=== PATIENT | female | born 1935 | race Caucasian/White ===

== ENCOUNTER 2016-11-13 14:51 | Inpatient (IN) | payer MEDICARE ==
--- NOTE | 2016-11-13 15:41 | ED ---
Psych HPI - General Chief Complaint: Psychiatric Symptoms Stated Complaint: Mental Health Time Seen by Provider: 11/13/16 15:00 Source: patient, police, RN notes reviewed Mode of arrival: ambulatory - History of Present Illness Initial Comments: This is a 81-year-old female history of schizophrenia who is brought in a pickup order because of not caring for her son. She lives by herself but apparently is not been since July of this past year there is a report of a history of bed bugs in her house she actually was given new furniture and clothing there is none reported today but is precaution she is also to be checked for this. She has been given soap and howls and other things by [facility] but she has not used them but they have disappeared. Patient is a poor historian. Is no reports of any trauma fevers chills nausea vomiting sweats or other symptoms MD Complaint: other - Related Data Home Medications Medication Instructions Recorded Confirmed No Known Home Medications [No 11/13/16 11/13/16 Known Home Medications] Allergies Allergy/AdvReac Type Severity Reaction Status Date / Time No Known Allergies Allergy Verified 11/13/16 15:45 Review of Systems ROS Statement: Those systems with pertinent positive or pertinent negative responses have been documented in the HPI. ROS Other: All systems not noted in ROS Statement are negative. Limitations: ROS unobtainable due to patients medical condition Past Medical History Past Medical History: Unable to Obtain Additional Past Medical History / Comment(s): pt unsure of hx History of Any Multi-Drug Resistant Organisms: None Reported Past Surgical History: Unable to Obtain Past Psychological History: No Psychological Hx Reported Smoking Status: Never smoker Past Alcohol Use History: None Reported Past Drug Use History: None Reported General Exam - General Exam Comments Initial Comments: Is a well-developed well-nourished awake Limitations: no limitations General appearance: alert, in no apparent distress Head exam: Present: atraumatic, normocephalic, normal inspection Eye exam: Present: normal appearance, PERRL, EOMI. Absent: scleral icterus, conjunctival injection, periorbital swelling ENT exam: Present: normal exam, mucous membranes moist Neck exam: Present: normal inspection. Absent: tenderness, meningismus, lymphadenopathy Respiratory exam: Present: normal lung sounds bilaterally. Absent: respiratory distress, wheezes, rales, rhonchi, stridor Cardiovascular Exam: Present: regular rate, normal rhythm, normal heart sounds. Absent: systolic murmur, diastolic murmur, rubs, gallop, clicks GI/Abdominal exam: Present: soft, normal bowel sounds. Absent: distended, tenderness, guarding, rebound, rigid Rectal exam: Present: deferred Extremities exam: Present: full ROM, normal capillary refill, other (Patient does have evidence of stasis dermatitis to her lower extremities bilaterally. There is a small abrasion to the left lower extremity to demonstrates no active bleeding.). Absent: tenderness, pedal edema, joint swelling, calf tenderness Back exam: Present: full ROM. Absent: tenderness Neurological exam: Present: alert, altered, CN II-XII intact Psychiatric exam: Present: normal mood, flat affect Skin exam: Present: warm, dry, normal color, other (Complete examination of the integument reveals several excoriated lesions on the upper shoulders and chest no evidence including inspection of the hair of any parasitic involvement at this time.). Absent: rash Course Vital Signs 11/13/16 15:08 Temperature 97.9 F Pulse Rate 112 H Respiratory 18 Rate Blood Pressure 142/80 O2 Sat by Pulse 98 Oximetry Medical Decision Making - Medical Decision Making Patient was evaluated by the psychiatric service. I did fill out a clinical certification. Patient will be admitted with diagnosis of psychosis NOS as well as her schizophrenia and UTI. She'll be placed on Levaquin 500 mg daily for 9 more days. - Lab Data Result diagrams: 11/13/16 15:30 Lab Results 11/13/16 11/13/16 11/13/16 Range/Units 15:30 15:30 15:30 WBC 9.1 (3.8-10.6) k/uL RBC 4.45 (3.80-5.40) m/uL Hgb 12.5 (11.4-16.0) gm/dL Hct 38.9 (34.0-46.0) % MCV 87.2 (80.0-100.0) fL MCH 28.1 (25.0-35.0) pg MCHC 32.2 (31.0-37.0) g/dL RDW 14.8 (11.5-15.5) % Plt Count 395 (150-450) k/uL Neutrophils % 73 % Lymphocytes % 14 % Monocytes % 7 % Eosinophils % 2 % Basophils % 1 % Neutrophils # 6.6 (1.3-7.7) k/uL Lymphocytes # 1.3 (1.0-4.8) k/uL Monocytes # 0.6 (0-1.0) k/uL Eosinophils # 0.2 (0-0.7) k/uL Basophils # 0.1 (0-0.2) k/uL Hypochromasia Slight Magnesium 2.1 (1.6-2.3) mg/dL Ammonia (<30) umol/L Total Creatine Kinase 62 (30-135) U/L CK-MB (CK-2) 0.4 (0.0-2.4) ng/mL CK-MB (CK-2) Rel Index 0.6 Urine Color Urine Appearance (Clear) Urine pH (5.0-8.0) Ur Specific [place] (1.001-1.035) Urine Protein (Negative) Urine Glucose (UA) (Negative) Urine Ketones (Negative) Urine Blood (Negative) Urine Nitrate (Negative) Urine Bilirubin (Negative) Urine Urobilinogen (<2.0) mg/dL Ur Leukocyte Esterase (Negative) Urine RBC (0-5) /hpf Urine WBC (0-5) /hpf Urine WBC Clumps (None) /hpf Ur Squamous Epith Cells (0-4) /hpf Amorphous Sediment (None) /hpf Urine Bacteria (None) /hpf Hyaline Casts (0-2) /lpf Urine Mucus (None) /hpf Urine Opiates Screen (NotDetected) Ur Oxycodone Screen (NotDetected) Urine Methadone Screen (NotDetected) Ur Propoxyphene Screen (NotDetected) Ur Barbiturates Screen (NotDetected) U Tricyclic Antidepress (NotDetected) Ur Phencyclidine Scrn (NotDetected) Ur Amphetamines Screen (NotDetected) U Methamphetamines Scrn (NotDetected) U Benzodiazepines Scrn (NotDetected) Urine Cocaine Screen (NotDetected) U Marijuana (THC) Screen (NotDetected) 11/13/16 11/13/16 Range/Units 15:46 16:10 WBC (3.8-10.6) k/uL RBC (3.80-5.40) m/uL Hgb (11.4-16.0) gm/dL Hct (34.0-46.0) % MCV (80.0-100.0) fL MCH (25.0-35.0) pg MCHC (31.0-37.0) g/dL RDW (11.5-15.5) % Plt Count (150-450) k/uL Neutrophils % % Lymphocytes % % Monocytes % % Eosinophils % % Basophils % % Neutrophils # (1.3-7.7) k/uL Lymphocytes # (1.0-4.8) k/uL Monocytes # (0-1.0) k/uL Eosinophils # (0-0.7) k/uL Basophils # (0-0.2) k/uL Hypochromasia Magnesium (1.6-2.3) mg/dL Ammonia <9 (<30) umol/L Total Creatine Kinase (30-135) U/L CK-MB (CK-2) (0.0-2.4) ng/mL CK-MB (CK-2) Rel Index Urine Color Yellow Urine Appearance Cloudy H (Clear) Urine pH 5.5 (5.0-8.0) Ur Specific [place] 1.014 (1.001-1.035) Urine Protein Trace H (Negative) Urine Glucose (UA) Negative (Negative) Urine Ketones Negative (Negative) Urine Blood Small H (Negative) Urine Nitrate Positive H (Negative) Urine Bilirubin Negative (Negative) Urine Urobilinogen <2.0 (<2.0) mg/dL Ur Leukocyte Esterase Large H (Negative) Urine RBC 17 H (0-5) /hpf Urine WBC >182 H (0-5) /hpf Urine WBC Clumps Many H (None) /hpf Ur Squamous Epith Cells 9 H (0-4) /hpf Amorphous Sediment Occasional H (None) /hpf Urine Bacteria Many H (None) /hpf Hyaline Casts 5 H (0-2) /lpf Urine Mucus Occasional H (None) /hpf Urine Opiates Screen Not Detected (NotDetected) Ur Oxycodone Screen Not Detected (NotDetected) Urine Methadone Screen Not Detected (NotDetected) Ur Propoxyphene Screen Not Detected (NotDetected) Ur Barbiturates Screen Not Detected (NotDetected) U Tricyclic Antidepress Not Detected (NotDetected) Ur Phencyclidine Scrn Not Detected (NotDetected) Ur Amphetamines Screen Not Detected (NotDetected) U Methamphetamines Scrn Not Detected (NotDetected) U Benzodiazepines Scrn Not Detected (NotDetected) Urine Cocaine Screen Not Detected (NotDetected) U Marijuana (THC) Screen Not Detected (NotDetected) - EKG Data -: EKG Interpreted by Me EKG shows normal: sinus rhythm (Normal sinus rhythm rate of 86. Interval 138 QRS duration 70 QT/QTC of 380/[address]-T wave changes.) - Radiology Data Radiology results: report reviewed (I did review the imaging and reports no acute findings.), image reviewed Disposition Clinical Impression: Acute psychosis, Schizophrenia, Urinary tract infection Disposition: TRANSFER TO PSYCH HOSP/UNIT Condition: Stable
[2016-11-13 15:52] LABS: Basophils # (A) 0.1 k/uL (0-0.2); Basophils % (A) 1 %; CH 27.2; CHCM 31.3; Eosinophils # (A) 0.2 k/uL (0-0.7); Eosinophils % (A) 2 %; HCT 38.9 % (34.0-46.0); HDW 2.65; HGB 12.5 gm/dL (11.4-16.0); Hypochromasia Slight; Luc # (Auto) 0.26; Luc % (Auto) 3; Lymphocytes # (A) 1.3 k/uL (1.0-4.8); Lymphocytes % (A) 14 %; MCH 28.1 pg (25.0-35.0); MCHC 32.2 g/dL (31.0-37.0); MCV 87.2 fL (80.0-100.0); Monocytes # (A) 0.6 k/uL (0-1.0); Monocytes % (A) 7 %; Neutrophils # (A) 6.6 k/uL (1.3-7.7); Neutrophils % (A) 73 %; RBC 4.45 m/uL (3.80-5.40); RDW 14.8 % (11.5-15.5); WBC 9.1 k/uL (3.8-10.6); WBC (Perox) 9.32
[2016-11-13 16:39] LABS: Creatine Kinase MB 0.4 ng/mL (0.0-2.4)
--- NOTE | 2016-11-13 16:49 | CT ---
EXAMINATION TYPE: CT brain wo con DATE OF EXAM: 11/13/2016 4:44 PM COMPARISON: 03/30/2013 HISTORY: Patient poor historian CT DLP: [address] of the brain was performed. The ventricles, basal cisterns and sulci overlying the cerebral convexities demonstrate moderate enla rgement. There is no evidence for intracranial hemorrhage or sulcal effacement. There is decreased attenuation about the periventricular white matter and deep white matter of both c erebral hemispheres, compatible with chronic small vessel ischemia. Differential diagnosis does inclu de demyelination. No mass effects are seen.No midline shift. Osseous calvarium is intact. If symptoms persist consider MRI. IMPRESSION: 1. Age related atrophic and chronic small vessel ischemic change without acute intracranial process s een at this time.
[2016-11-13 16:55] LABS: Amorphous Sediment,Urine Occasional /hpf; Appearance,Urine Cloudy (Clear); Bacteria,Urine Many /hpf; Bilirubin,Urine Negative (Negative); Glucose,Urine (UA) Negative (Negative); Ketones,Urine Negative (Negative); Leukocyte Esterase,Urine Large (Negative); Mucus,Urine Occasional /hpf; Nitrite,Urine Positive (Negative); PH, Urine 5.5 (5.0-8.0); Particle Count 83813; Protein,Urine Trace (Negative); RBC,Urine 17 /hpf (0-5); Specific Gravity,Urine 1.014 (1.001-1.035); Squamous Epithelial Cell,Urine 9 /hpf (0-4); UA Billing (MACRO vs. MICRO) MICRO; Urobilinogen,Urine <2.0 mg/dL (<2.0); WBC,Urine >182 /hpf (0-5)
--- NOTE | 2016-11-13 16:55 | XR ---
EXAMINATION TYPE: XR chest 2V DATE OF EXAM: 11/13/2016 4:44 PM COMPARISON: 03/30/2013 HISTORY: Shortness of breath TECHNIQUE: Frontal and lateral views of the chest are obtained. FINDINGS: Scattered senescent parenchymal changes noted. Hyperinflation compatible with COPD. No evidence for infiltrate. No evidence for atelectasis. Heart size is enlarged. Mediastinal structures are stable and grossly unremarkable. Small fixed hiatal hernia. No evidence for hilar prominence. Degenerative changes dorsal spine. IMPRESSION: 1. No evidence for acute pulmonary disease.
[2016-11-13] MEDS ORDERED: LEVOFLOXACIN 500 MG TAB PO STA (17:15)
[2016-11-13] MEDS ORDERED: ACETAMINOPHEN TAB 325 MG TAB PO PRN (21:44)
[2016-11-13] MEDS ORDERED: MAGNESIUM HYDROXIDE 2,400 MG/10 ML CUP PO PRN (21:44)
[2016-11-13] MEDS ORDERED: MAG HYDROX/AL HYDROX/SIMETH 30 ML CUP PO PRN (21:44)
[2016-11-13] MEDS ORDERED: LORazepam 2 MG/ML SYRINGE IM PRN (21:50)
[2016-11-13] MEDS ORDERED: LORazepam 1 MG TAB PO PRN (21:50)
[2016-11-14 08:19] LABS: Basophils % (A) 1 %; CH 27.3; CHCM 31.3; Eosinophils # (A) 0.2 k/uL (0-0.7); Eosinophils % (A) 3 %; HCT 35.1 % (34.0-46.0); HDW 2.61; HGB 11.2 gm/dL (11.4-16.0); Hypochromasia Slight; Luc # (Auto) 0.23; Luc % (Auto) 3; Lymphocytes # (A) 1.2 k/uL (1.0-4.8); Lymphocytes % (A) 18 %; MCH 27.9 pg (25.0-35.0); MCV 87.4 fL (80.0-100.0); Mean Platelet Volume 7.8; Monocytes # (A) 0.5 k/uL (0-1.0); Monocytes % (A) 7 %; Neutrophils # (A) 4.7 k/uL (1.3-7.7); Neutrophils % (A) 69 %; RBC 4.02 m/uL (3.80-5.40); RDW 14.9 % (11.5-15.5); WBC 6.8 k/uL (3.8-10.6); WBC (Perox) 7.37
--- NOTE | 2016-11-14 11:42 | P.HP ---
Psychiatric H&P - . H&P Date: 11/14/16 History & Physical: IDENTIFYING DATA: Ms. Tello is 81-year-old female who presented to the psychiatric unit involuntarily with an Order for Examination/Transport. HISTORY OF PRESENT ILLNESS: A credit collector from [employer] completed the Petition for Mental Health Treatment. The Petition read "Nicol has not bathed since 07-24 Nicol has red, swollen legs with white flaking skin. Nicol had bed bugs crawling on her. She refused to go to the doctor on 2016. Nicol does not have adequate food in her home and refuses Meals on Wheels. ... Nicol has sores on her feet. She has had treatment for bedbugs, every 2 weeks for months." Mr. Luke was unable to provide an coherent history. She stated that the police brought her here. They "came to where I was at and brought me here. ... I told him I was getting to leave." She doesn't know where she was at when the police picked her up. She talked about having to leave her apartment and "staying somewherer" because of bedbugs. "They told us to leave because we had bugs. Some went back to their relatives." Her son is only relative. She believes that he lives "[place]". According to the information on the Petition her son lives in [facility]. The EPS nurse spoke with her son yesterday. He stated that he visited his mother 2 weeks ago and saw her living conditions and her mental state. He received letter from her logistics loss prevention manager complaining that his mother was "tracking stool" in her apartment and not taking care of herself. He stated his mother has a history of mental illness, psychiatric hospitalizations and ECT. He just applied for temporary guardianship. He is very concerned his mother's refusing to seek any medical care or mental health treatment. PAST PSYCHIATRIC HISTORY: She denied prior psychiatric hospitalizations. According to our EMR, she was admitted to medicine service in March 2013 for a delirium secondary to urinary tract infection. Dr. Billingsley provided a psychiatric assessment and consult. He diagnosed delirium secondary to urinary tract infection and recommended social work assist with placement. Mr. Luke stated that she met with a mental health professional "several years ago" because she had a "nervous breakdown". PAST MEDICAL HISTORY: She denied a history of medical illnesses. According to record she has been refusing medical care. ALLERGIES: NO KNOWN DRUG ALLERGIES. SUBSTANCE USE HISTORY: . She denied use of alcohol or drugs. She denied participation in substance abuse treatment programs. Her urine drug screen was negative for drugs of abuse. FAMILY PSYCHIATRIC/SUBSTANCE USE HISTORY: She is unaware of a family history of psychiatric substance abuse problems. LEGAL HISTORY: She denied legal problems. SOCIAL HISTORY: She is born in [facility] and raised in intact family. She graduated from high school and earned a teaching certificate from the [employer]. 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 She was "for 5 years". She has 1 son and 2 grandsons. 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 She receives social security disability. MENTAL STATUS EXAM: She presented as disheveled and extremely malodorous 81-year -old female. Her face was heavily weathered and her hair was unkempt. She made eye contact. At times she appeared internally preoccupied and not attending to the interview. Her skin was dry and wrinkled. Her legs were erythematous. She has slow but steady gait. She had a flat facial expression. She was alert and oriented to person, city, month and year. She showed psychomotor retardation but no abnormal involuntary movements. Her speech was spontaneous with decreased rate, rhythm and volume. She had no articulation difficulties. Her affect was flat. She denied suicidal ideation or wishes. She denied homicidal ideation. She denied depressive cognitions such as hopelessness, helplessness and worthlessness. She did not express ideas of reference or paranoid ideation. Her thinking was concrete but her associations were coherent and logical. She did not demonstrate clang associations, perseveration, neologisms or blocking. During the interview she talked about hearing a voice instructing her on how to answer questions on the [facility]. She alleged that the auditory experience occurs "occasionally" but would not elaborate more on the experience. She denied thought insertion, thought broadcasting or thought control. We completed the [facility]. Her total score was 16/30. She demonstrated impairment with visual/executive functioning, naming, attention , language, delayed recall and orientation. STRENGTHS: Stable income, enrolled in Medicare. WEAKNESSES: Poor self-care, lack of understanding of her need for medical treatment, cognitive impairment, poor self-care, possible housing problems. IMPRESSION: She is 81-year-old female brought to the unit with a Petition and an Order for examination is a history of a mental illness. She presented to unit with a history of poor self-care and confusion. She was unable to explain the reason for presentation. Her son described an extensive history of mental illness. On mental status testing she has impairment of cognitive functions consistent with a major neurocognitive disorder. We will proceed with involuntary hospitalization because she has markedly impaired ability to care of herself. PRINCIPLE DIAGNOSIS: Major neurocognitive disorder unspecified, rule out chronic schizophrenia, rule out peripheral vascular disease RECOMMENDATION: Complete the second clinical certificate and proceed with involuntary hospitalization. Consult medicine for initial physical exam and medical history. Social work will assist with coordinating community services; patient may need placement in a supervised setting. Nursing staff to assist with self-care. Consider a trial of an anticholinesterase inhibitor and/or an antipsychotic medication. 15 minute checks for patient safety. Evaluate clinical status and response to treatment daily basis. Encourage participation in therapeutic groups and activities as tolerated. Allergies Allergy/AdvReac Type Severity Reaction Status Date / Time No Known Allergies Allergy Verified 11/13/16 15:45 Vital Signs Temp 98.0 F 11/14/16 06:55 Pulse 84 11/14/16 06:55 Resp 12 11/14/16 06:55 BP 129/66 11/14/16 06:55 Pulse Ox 94 L 11/13/16 21:13 Intake & Output 11/13/16 11/14/16 11/14/16 18:59 06:59 18:59 Weight 61.708 kg Laboratory Last Values WBC 9.1 k/uL (3.8-10.6) 11/13/16 15:30 RBC 4.45 m/uL (3.80-5.40) 11/13/16 15:30 Hgb 12.5 gm/dL (11.4-16.0) 11/13/16 15:30 Hct 38.9 % (34.0-46.0) 11/13/16 15:30 MCV 87.2 fL (80.0-100.0) 11/13/16 15:30 MCH 28.1 pg (25.0-35.0) 11/13/16 15:30 MCHC 32.2 g/dL (31.0-37.0) 11/13/16 15:30 RDW 14.8 % (11.5-15.5) 11/13/16 15:30 Plt Count 395 k/uL (150-450) 11/13/16 15:30 Neutrophils % 73 % 11/13/16 15:30 Lymphocytes % 14 % 11/13/16 15:30 Monocytes % 7 % 11/13/16 15:30 Eosinophils % 2 % 11/13/16 15:30 Basophils % 1 % 11/13/16 15:30 Neutrophils # 6.6 k/uL (1.3-7.7) 11/13/16 15:30 Lymphocytes # 1.3 k/uL (1.0-4.8) 11/13/16 15:30 Monocytes # 0.6 k/uL (0-1.0) 11/13/16 15:30 Eosinophils # 0.2 k/uL (0-0.7) 11/13/16 15:30 Basophils # 0.1 k/uL (0-0.2) 11/13/16 15:30 Hypochromasia Slight 11/13/16 15:30 Magnesium 2.1 mg/dL (1.6-2.3) 11/13/16 15:30 Ammonia <9 umol/L (<30) 11/13/16 15:46 Total Creatine Kinase 62 U/L (30-135) 11/13/16 15:30 CK-MB (CK-2) 0.4 ng/mL (0.0-2.4) 11/13/16 15:30 CK-MB (CK-2) Rel Index 0.6 11/13/16 15:30 Urine Color Yellow 11/13/16 16:10 Urine Appearance Cloudy (Clear) H 11/13/16 16:10 Urine pH 5.5 (5.0-8.0) 11/13/16 16:10 Ur Specific [place] 1.014 (1.001-1.035) 11/13/16 16:10 Urine Protein Trace (Negative) H 11/13/16 16:10 Urine Glucose (UA) Negative (Negative) 11/13/16 16:10 Urine Ketones Negative (Negative) 11/13/16 16:10 Urine Blood Small (Negative) H 11/13/16 16:10 Urine Nitrate Positive (Negative) H 11/13/16 16:10 Urine Bilirubin Negative (Negative) 11/13/16 16:10 Urine Urobilinogen <2.0 mg/dL (<2.0) 11/13/16 16:10 Ur Leukocyte Esterase Large (Negative) H 11/13/16 16:10 Urine RBC 17 /hpf (0-5) H 11/13/16 16:10 Urine WBC >182 /hpf (0-5) H 11/13/16 16:10 Urine WBC Clumps Many /hpf (None) H 11/13/16 16:10 Ur Squamous Epith Cells 9 /hpf (0-4) H 11/13/16 16:10 Amorphous Sediment Occasional /hpf (None) H 11/13/16 16:10 Urine Bacteria Many /hpf (None) H 11/13/16 16:10 Hyaline Casts 5 /lpf (0-2) H 11/13/16 16:10 Urine Mucus Occasional /hpf (None) H 11/13/16 16:10 Urine Opiates Screen Not Detected (NotDetected) 11/13/16 16:10 Ur Oxycodone Screen Not Detected (NotDetected) 11/13/16 16:10 Urine Methadone Screen Not Detected (NotDetected) 11/13/16 16:10 Ur Propoxyphene Screen Not Detected (NotDetected) 11/13/16 16:10 Ur Barbiturates Screen Not Detected (NotDetected) 11/13/16 16:10 U Tricyclic Antidepress Not Detected (NotDetected) 11/13/16 16:10 Ur Phencyclidine Scrn Not Detected (NotDetected) 11/13/16 16:10 Ur Amphetamines Screen Not Detected (NotDetected) 11/13/16 16:10 U Methamphetamines Scrn Not Detected (NotDetected) 11/13/16 16:10 U Benzodiazepines Scrn Not Detected (NotDetected) 11/13/16 16:10 Urine Cocaine Screen Not Detected (NotDetected) 11/13/16 16:10 U Marijuana (THC) Screen Not Detected (NotDetected) 11/13/16 16:10 11/14/16 07:53 11/14/16 09:39 11/14/16 11:33
--- NOTE | 2016-11-14 13:37 | P.CONS ---
History of Present Illness - Reason for Consult Consult date: 11/14/16 Medical management - History of Present Illness Patient refused to be seen by medical team. This is an 81-year-old female. She does not have a primary care physician and has not been seen by a physician in many years. She is currently living at [facility]. Her son was home from [place] and has obtained temporary guardianship. Patient has been paranoid thinking people are after her. She has been brought in on a petition from [employer] stating that she has not paid since July 2016. She has red swollen legs that are not being treated and also bedbug bites. Patient states that she knows she has bedbugs and has been treated a number of times in the past. She does have a mental health history and has received ECT in the past. CBC was within normal limits. TSH 2.610. Urinalysis was cloudy, blood small, nitrate positive, leukoesterase large, RBC 17, wbc's greater than 182 with WBC:. Squamous cells were 9. Urine drug screen was negative. Chest x-ray showed no acute pulmonary disease. CAT scan of the brain showed age-related atrophy and chronic small vessel ischemic changes without acute intracranial process. Patient was placed on Levaquin for urinary tract infection. She has been admitted to the mental health unit. Review of Systems All systems: negative Constitutional: Denies chills, Denies fever Eyes: denies blurred vision, denies pain Ears, nose, mouth and throat: Denies headache, Denies sore throat Cardiovascular: Denies chest pain, Denies shortness of breath Respiratory: Denies cough Gastrointestinal: Denies abdominal pain, Denies diarrhea, Denies nausea, Denies vomiting Genitourinary: Denies dysuria, Denies hematuria Musculoskeletal: Denies myalgias Integumentary: Denies pruritus, Denies rash Neurological: Denies numbness, Denies weakness Psychiatric: Denies anxiety, Denies depression Endocrine: Denies fatigue, Denies weight change Past Medical History Past Medical History: Unable to Obtain Additional Past Medical History / Comment(s): pt unsure of hx History of Any Multi-Drug Resistant Organisms: None Reported Past Surgical History: Unable to Obtain Past Psychological History: No Psychological Hx Reported Smoking Status: Never smoker Past Alcohol Use History: None Reported Past Drug Use History: None Reported Medications and Allergies Home Medications Medication Instructions Recorded Confirmed Type No Known Home Medications [No 11/13/16 11/13/16 History Known Home Medications] Allergies Allergy/AdvReac Type Severity Reaction Status Date / Time No Known Allergies Allergy Verified 11/13/16 15:45 Physical Exam Vitals: Vital Signs Temp Pulse Pulse Resp BP BP Pulse Ox 11/14/16 06:55 98.0 F 84 12 129/66 11/13/16 21:42 98.4 F 90 18 134/71 11/13/16 21:13 98 16 121/58 94 L Intake and Output 11/13/16 11/14/16 11/14/16 22:59 06:59 14:59 Other: Weight 61.708 kg Gen: This is an 81-year-old female. She is cooperative and appears to be in no acute distress. No respiratory distress noted. HEENT: Head is atraumatic, normocephalic. Pupils equal, round. Sclerae is anicteric. NECK: Supple. No JVD. No lymphadenopathy. No thyromegaly. LUNGS: Clear to auscultation. No wheezes or rhonchi. No intercostal retractions. HEART: Regular rate and rhythm. No murmur. ABDOMEN: Soft. Bowel sounds are present. No masses. No tenderness. EXTREMITIES: No pedal edema. No calf tenderness. NEUROLOGICAL: Patient is awake, alert and oriented x3. Cranial nerves 2 through 12 are grossly intact. Results CBC & Chem 7: 11/14/16 08:08 Labs: Abnormal Lab Results - Last 24 Hours (Table) 11/14/16 Range/Units 08:08 Hgb 11.2 L (11.4-16.0) gm/dL Assessment and Plan Plan: 1. Paranoia with history of possible schizophrenia. Patient admitted to the mental health unit. Continue current plan of care. 2. No tobacco use. No need for nicotine patch. 3. Urinary tract infection. Patient on Levaquin. 4. [ ]. 5. [ ]. 6. [ ]. Impression and plan of care have been directed as dictated by the signing physician. Martha Tobias nurse practitioner acting as scribe for signing physician. Time with Patient: Greater than 30
[2016-11-14] MEDS: LEVOFLOXACIN 500 MG TAB PO SCH (17:45)
[2016-11-15] MEDS: risperiDONE ODT 1 MG TAB PO SCH (10:38)
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
[2016-11-15] MEDS ORDERED: PERMETHRIN 5% CREAM 60 GM TUBE TOPICAL ONE (12:31)
--- NOTE | 2016-11-15 13:21 | P.CONS ---
History of Present Illness - Reason for Consult Consult date: 11/15/16 Medical management - History of Present Illness This is an 81-year-old female. She does not have a primary care physician and has not been seen by a physician in many years. She is currently living at [facility]. Her son was home from [place] and has obtained temporary guardianship. Patient has been paranoid thinking people are after her. She has been brought in on a petition from [employer] stating that she has not paid since July 2016. She has red swollen legs that are not being treated and also bedbug bites. Patient states that she knows she has bedbugs and has been treated a number of times in the past. She does have a mental health history and has received ECT in the past. CBC was within normal limits. TSH 2.610. Urinalysis was cloudy, blood small, nitrate positive, leukoesterase large, RBC 17, wbc's greater than 182 with WBC:. Squamous cells were 9. Urine drug screen was negative. Chest x-ray showed no acute pulmonary disease. CAT scan of the brain showed age-related atrophy and chronic small vessel ischemic changes without acute intracranial process. Patient was placed on Levaquin for urinary tract infection. She has been admitted to the mental health unit. Patient is now agreeable to be seen by medicine. She denies any concerns or complaints. She is a very poor historian. Review of Systems All systems: negative Constitutional: Denies chills, Denies fever Eyes: denies blurred vision, denies pain Ears, nose, mouth and throat: Denies headache, Denies sore throat Cardiovascular: Denies chest pain, Denies shortness of breath Respiratory: Denies cough Gastrointestinal: Denies abdominal pain, Denies diarrhea, Denies nausea, Denies vomiting Genitourinary: Denies dysuria, Denies hematuria Musculoskeletal: Denies myalgias Integumentary: Denies pruritus, Denies rash Neurological: Denies numbness, Denies weakness Psychiatric: Denies anxiety, Denies depression Endocrine: Denies fatigue, Denies weight change Past Medical History Past Medical History: Unable to Obtain Additional Past Medical History / Comment(s): pt unsure of hx History of Any Multi-Drug Resistant Organisms: None Reported Past Surgical History: Unable to Obtain, Appendectomy, Tonsillectomy Past Psychological History: No Psychological Hx Reported Smoking Status: Never smoker Past Alcohol Use History: None Reported Additional Past Alcohol Use History / Comment(s): She denies history of smoking. She denies medical marijuana, marijuana, street drug or alcohol use. She is a and lives alone. Past Drug Use History: None Reported - Past Family History Father Additional Family Medical History / Comment(s): Father from a stroke. Mother Additional Family Medical History / Comment(s): Mother from digestive problems. Brother(s) Additional Family Medical History / Comment(s): Patient has 1 brother but she has no contact with him. Patient does not have any sisters. Son(s) Additional Family Medical History / Comment(s): Patient has 1 son with no major medical problems. Medications and Allergies Home Medications Medication Instructions Recorded Confirmed Type No Known Home Medications [No 11/13/16 11/13/16 History Known Home Medications] Allergies Allergy/AdvReac Type Severity Reaction Status Date / Time No Known Allergies Allergy Verified 11/13/16 15:45 Physical Exam Vitals: Vital Signs Temp Pulse Resp BP 11/15/16 05:13 98.2 F 80 12 111/63 Gen: This is an 81-year-old female. She is sitting up at the edge of her bed and appears to be in no acute distress. HEENT: Head is atraumatic, normocephalic. Pupils equal, round. Sclerae is anicteric. NECK: Supple. No JVD. No lymphadenopathy. No thyromegaly. LUNGS: Clear to auscultation. No wheezes or rhonchi. No intercostal retractions. HEART: Regular rate and rhythm. No murmur. ABDOMEN: Soft. Bowel sounds are present. No masses. No tenderness. EXTREMITIES: No pedal edema. No calf tenderness. Skin lesions noted throughout her body. NEUROLOGICAL: Patient is awake, alert and oriented x3. Cranial nerves 2 through 12 are grossly intact. Noted short-term memory deficit and mild confusion. Results CBC & Chem 7: 11/14/16 08:08 Assessment and Plan Plan: 1. Paranoia with history of possible schizophrenia. Patient admitted to the mental health unit. Continue current plan of care. 2. No tobacco use. No need for nicotine patch. 3. Urinary tract infection. Patient on Levaquin. 4. Mental status changes with suspected metabolic encephalopathy secondary to a combination of urinary tract infection, dementia. Patient will be started on Aricept.]. 5. Suspected scabies. Permethrin cream to reapply tonight and showered off tomorrow. All clothing and bedding needs to be washed in hot water. Impression and plan of care have been directed as dictated by the signing physician. Martha Tobias nurse practitioner acting as scribe for signing physician. Time with Patient: Greater than 30
[2016-11-15] MEDS: LEVOFLOXACIN 500 MG TAB PO SCH (17:39)
[2016-11-15] MEDS: DONEPEZIL 5 MG TAB PO SCH (21:53)
[2016-11-16] MEDS: risperiDONE ODT 1 MG TAB PO SCH (08:56)
--- NOTE | 2016-11-16 16:09 | P.PN ---
Progress Note - Text Interval history: The patient is found in her room she follows me to an interview room. It appears she presents with a major neurocognitive disorder with symptoms of psychosis. She refers to her concern of the crying that is occurring here. She states she doesn't feel safe here because "lesbians have come from [place] [facility]". She is prescribed Risperdal 1 mg and Aricept. The patient has no insight into her medications or why she is here in the hospital. Mental status exam: The patient is a female she is dressed in her own clothing she has a disheveled appearance. Eye contact is appropriate she is noted to have slow gait but no ataxia. She does have spontaneous speech but often it is not relevant to questions being asked or our conversation in general. Thought process is not well organized. There is clear impairment of short-term memory. She demonstrates no verbal or physical aggressiveness. Insight and judgment are poor. No signs of abnormal involuntary movements. Plan: The patient will continue on her current psychotropic medications. It appears she is experiencing symptoms of psychosis in the context of major neurocognitive disorder. Vital signs reviewed.
[2016-11-16] MEDS: LEVOFLOXACIN 500 MG TAB PO SCH (17:40)
[2016-11-16] MEDS: DONEPEZIL 5 MG TAB PO SCH ×2 (21:46→21:51)
[2016-11-17] MEDS: risperiDONE ODT 1 MG TAB PO SCH (09:03)
--- NOTE | 2016-11-17 11:54 | P.PN ---
Progress Note - Text Interval history: The patient is found in her room she seated on her bed. Upon approach she states that I need to get food for the 2 children in her room. She points to the head of her bed stating there are 2 children there both under the age of 8. She is concerned they have not eaten. Staff report the patient did not sleep last night. She is demonstrating no agitated behavior. She clearly continues to have a delusional thought content and cites a number of different delusions. When asked if she remembers who I am she states "you say you are a psychiatrist" Mental status exam: The patient is an elderly female she seated at the foot of her bed. She seated calmly she demonstrates no agitated behavior. Eye contact is appropriate. She speaks very softly. She is experiencing auditory and visual hallucinations specifically believing there are 2 children in her room that need food. She continues to possess a delusional thought content. She demonstrates no verbal or physical aggressiveness during our session. Insight and judgment are poor. She is oriented to being in the hospital. Affect remains flat. Plan: The patient will continue on her current medication the Risperdal 1 mg daily. There is no evidence of any abnormal involuntary movements. She continues to be treated for urinary tract infection which may be contributing to her psychiatric presentation. Vital signs reviewed. We will continue to monitor for safety and encourage her participation in the milieu.
[2016-11-17] MEDS: LEVOFLOXACIN 500 MG TAB PO SCH (17:21)
[2016-11-17] MEDS: FUROSEMIDE 20 MG TAB PO SCH (18:28)
[2016-11-17] MEDS: DONEPEZIL 5 MG TAB PO SCH (21:28)
[2016-11-18] MEDS: risperiDONE ODT 1 MG TAB PO SCH ×2 (09:42→21:31)
[2016-11-18] MEDS: FUROSEMIDE 20 MG TAB PO SCH (09:42)
--- NOTE | 2016-11-18 15:31 | P.PN ---
Progress Note - Text SUBJECTIVE: I reviewed the medical record, interviewed Ms. Luke and discussed her treatment and treatment plan during team meeting. She complained of feeling tired. She denied other complaints or concerns. OBJECTIVE: She presented as a pale and thin elderly woman who appeared sedated. She was resting comfortably in a chair in her room. She was wearing her compression stockings. She responded to her name and made eye contact. She had a blunted facial expression. She had marked psychomotor retardation but no abnormal movements. I did not evaluate her gait. His speech was not spontaneous. Her affect was blunted but appropriate. She denied ideas of reference or paranoid ideation. Her thinking was concrete but her associations were coherent. She denied hallucinations and did not appear to be responding to internal stimuli during our interview. The social media marketer spoke with her son who confirmed his wishes for her to return to her apartment until he can arrange for her to move to [place] to live with him. hardboard factory worker is arranging for home-based health care including a visiting psychiatric nurse. Nursing reports that she continues to have periods where she has animated conversations with herself as though she were responding to internal stimuli. Medicine consult appreciated. ASSESSMENT: She appears much more sedated with the addition of Aricept and Lasix. She appears severely mentally ill as shown minimal response since admission. She has not been able to participate in therapeutic groups and activity due to her cognitive impairment and persistent and chronic mental illness. PLAN: Change risperidone ODT dosing to 1 mg at bedtime to reduce daytime sedation. Continue Aricept 5 mg at bedtime for the treatment of a dementia. Continue Lasix 20 mg daily for treatment of peripheral edema. Evaluate clinical status and response to treatment on a daily basis.
[2016-11-18] MEDS: LEVOFLOXACIN 500 MG TAB PO SCH (18:09)
[2016-11-18] MEDS: DONEPEZIL 5 MG TAB PO SCH (21:32)
[2016-11-19] MEDS: FUROSEMIDE 20 MG TAB PO SCH (10:10)
--- NOTE | 2016-11-19 14:24 | P.PN ---
Progress Note - Text SUBJECTIVE: I reviewed the medical record, interviewed Ms. Luke and discussed her treatment and treatment plan during team meeting. She was without complaint or concerns. She denied side effects to current medications. She is aware that her son plans to have her move to [place] to live near him. OBJECTIVE: She presented as elderly disheveled appearing woman who was pleasant on approach. She did not make eye contact but appeared to attend to the interview. She had a flat facial expression. She had marked psychomotor retardation but no abnormal involuntary movements. Her speech was not spontaneous. Her affect was flat. She denied suicidal ideation or wishes. She did not express ideas reference or clear paranoid ideation. Her thinking was concrete but her associations appeared coherent. She denied hallucinations and did not appear to be responding to internal stimuli during our interview. The social problems specialist has spoken with the APS worker and her son. Ms. Luke will return to her apartment until her son has made arrangements to bring her to [place]. The APS worker has no concerns about her returning home (even though she has no furniture except for a couch and a shopping cart). The social problems specialist has arranged for home base health services including psychiatric services as well as Meals on Wheels. APS plans to remain involved. The social workers made several unsuccessful attempts to reach a public guardian. ASSESSMENT: She remains severely and chronically mentally ill and showed minimal to modest response to treatment. She is demonstrated no behavioral problems and being compliant with treatment. PLAN: Discharge her on 11/20/2016 with the approval of the guardian. We will refer her for home base healthcare services including a psychiatric nurse and a visiting physician. Continue risperidone 1 mg at bedtime as well as Aricept 5 mg at bedtime.
[2016-11-19] MEDS: LEVOFLOXACIN 500 MG TAB PO SCH (18:37)
[2016-11-19] MEDS: risperiDONE ODT 1 MG TAB PO SCH (22:00)
[2016-11-19] MEDS: DONEPEZIL 5 MG TAB PO SCH (22:00)
[2016-11-19 22:06] VITALS: RESP 16
[2016-11-20] MEDS: FUROSEMIDE 20 MG TAB PO SCH (09:55)
--- NOTE | 2016-11-20 13:58 | P.PN ---
Progress Note - Text SUBJECTIVE: I reviewed the medical record, interviewed Ms. Luke and discussed her treatment and treatment plan during team meeting. Nicol was without complaint; the only concern was returning home. During our interview, she made cryptic statements that may have reference psychotic experiences but she would not explain herself and would not answer my questions to clarify her statements. OBJECTIVE: She presented as a thin pale elderly female who is lying comfortably in her bed. She made eye contact and attended to the interview. She had a blunted facial expression. She had psychomotor retardation but no abnormal movements. Her speech was not spontaneous with decreased rate, rhythm and volume. Her affect was flat. She did not express suicidal thoughts or homicidal thoughts. She denied feeling hopeless, helpless or worthless. She appeared guarded and suspicious but did not express paranoid thoughts. At one point she made a statement about "them" and turned her eyes towards the side of the room suggesting that she may be experiencing auditory and/or visual hallucinations. However she would not answer questions to clarify the nature of the experiences. cab worker spoke with the public guardian about discharge. The guardians only concern was ongoing medical care. cab worker also spoke with her son. He stated that he would pay for a skilled nursing until he is able to transport her to [place]. ASSESSMENT: She remains severely mentally ill and minimal improved from admission. I suspect that she is experiencing auditory and/or visual hallucinations. Considering the severity of her mental illness and her need for ongoing psychiatric and medical care should best be discharged to a supervised setting such as a foster home rather than independent living with community support. PLAN: Continue inpatient hospitalization pending final discharge plans. cab worker to discuss placement in a foster home with her guardian. Continue risperidone 1 mg daily and Aricept 5 mg at bedtime. Discharge her to a foster home pending with consent of her guardian otherwise she will return to her apartment with home based healthcare services.
[2016-11-20] MEDS: LEVOFLOXACIN 500 MG TAB PO SCH (17:40)
[2016-11-20] MEDS: risperiDONE ODT 1 MG TAB PO SCH ×2 (21:09→21:13)
[2016-11-20] MEDS: DONEPEZIL 5 MG TAB PO SCH ×2 (21:09→21:13)
[2016-11-21 02:01] VITALS: BP 116/59; PULSE 88; TEMP 98
[2016-11-21] MEDS: FUROSEMIDE 20 MG TAB PO SCH (09:49)
--- NOTE | 2016-11-21 11:46 | P.DS ---
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 Tello is 81-year-old female who presented to the psychiatric unit involuntarily with an Order for Examination/Transport. A barn worker from [employer] completed the Petition for Mental Health Treatment. The Petition read "Nicol has not bathed since 07-24 Nicol has red, swollen legs with white flaking skin. Nicol had bed bugs crawling on her. She refused to go to the doctor on 10/30/2016. Nicol does not have adequate food in her home and refuses Meals on Wheels. ... Nicol has sores on her feet. She has had treatment for bedbugs, every 2 weeks for months." Mr. Luke was unable to provide an coherent history. She stated that the police brought her here. They "came to where I was at and brought me here. ... I told him I was getting to leave." She doesn't know where she was at when the police picked her up. She talked about having to leave her apartment and "staying somewherer" because of bedbugs. "They told us to leave because we had bugs. Some went back to their relatives." Her son is only relative. She believes that he lives "[place]". According to the information on the Petition her son lives in [facility]. The EPS nurse spoke with her son yesterday. He stated that he visited his mother 2 weeks ago and saw her living conditions and her mental state. He received letter from her engineering group manager complaining that his mother was "tracking stool" in her apartment and not taking care of herself. He stated his mother has a history of mental illness, psychiatric hospitalizations and ECT. He just applied for temporary guardianship. He is very concerned his mother's refusing to seek any medical care or mental health treatment. She denied prior psychiatric hospitalizations. She stated that she met with a mental health professional "several years ago" because she had a "nervous breakdown". Her son provided additional information. He stated that she has a long history of mental illness and several psychiatric hospitalizations. We admitted her to the psychiatric unit on the care of this rfp writer. We provided a biopsychosocial assessment. We consulted medicine for initial physical exam and medical history. The iconsultant diagnosed her with a urinary tract infection and peripheral edema. On the [facility] Cognitive Assessment her total score was 16/30. She demonstrated impairment with visual/ executive functioning, naming, attention, language, delayed recall and orientation. A computed tomography scan of the brain without contrast showed age-related atrophic and chronic small vessel ischemic changes without acute intracranial process. We started Risperdal 1 mg daily for the treatment of chronic schizophrenia. The medical equipment repair technician prescribed Aricept 5 mg at bedtime for the presumed diagnosis of Alzheimer's dementia, Levaquin 500 milligrams daily for the urinary tract infection and Lasix 20 mg daily for the peripheral edema. The protective services social worker had several contacts with her son, her court-appointed temporary public guardian and the APS protective services social worker. The long- term plan is for her to move to [place] to live with her son. In the interim he agreed to pay for her to live in an adult foster alf. The public guardian and the APS worker both concurred with AF placement. The protective services social worker arrange admission to [facility]. She spent much of the hospitalization in a room. She denied experiencing psychotic symptoms but was observed on several occasions talking as though she were responding to internal stimuli. The peripheral edema improve with Lasix. At the time of discharge she was pleasant on approach. She had a bright affect and was excited about the AFC placement. Patient Condition at Discharge: Stable Plan - Discharge Summary New Discharge Prescriptions: Donepezil [Aricept] 5 mg PO HS 30 Days Furosemide [Lasix] 20 mg PO DAILY 30 Days risperiDONE ODT [RisperDAL M-TAB] 1 mg PO HS 30 Days Discharge Medication List Donepezil [Aricept] 5 mg PO HS 30 Days 11/21/16 [Rx] Furosemide [Lasix] 20 mg PO DAILY 30 Days 11/21/16 [Rx] risperiDONE ODT [RisperDAL M-TAB] 1 mg PO HS 30 Days 11/21/16 [Rx] Follow up Appointment(s)/Referral(s): [facility] [Outside] - 11/28/16 8:00 am (Hoda will visit patient at [facility] on 11/28 she will call [phone] prior to visit ) None,Stated [Primary Care Provider] - 1-2 days Patient Instructions/Handouts: Schizophrenia (DC) Activity/Diet/Wound Care/Special Instructions: Regular diet.Activity as tolerated. Take medications as prescribed. Notify the crisis line or your care provider if symptoms worsen. Crisis line no, [phone]. Discharge Disposition: HOME SELF-CARE
== END 2016-11-21 11:58 | disposition home or self-care (01) | DRG 885 ==
LOC: EC 14:51 → 3MHU 21:08
PROVIDERS: ADMIT Psychiatry & Neurology Psychiatry; ATTEND Psychiatry & Neurology Psychiatry
DX: F20.5 Residual schizophrenia (principal); F02.80 Dementia in other diseases classified elsewhere, unspecified severity, without behavioral disturbance, psychotic disturbance, mood disturbance, and anxiety; G30.9 Alzheimer's disease, unspecified; N39.0 Urinary tract infection, site not specified; F01.50 Vascular dementia, unspecified severity, without behavioral disturbance, psychotic disturbance, mood disturbance, and anxiety; Z79.899 Other long term (current) drug therapy
CPT/HCPCS: 36415; 70450; 71020; 80306; 81001; 82075; 82140; 82550; 82553; 83735; 84443; 85025; 93005; 99285

== ENCOUNTER 2017-12-18 23:59 | Inpatient (IN) | payer MEDICARE, OTHER ==
[2017-12-19] MEDS ORDERED: SODIUM CHLORIDE 0.9% 500 ML IV ONE (00:13)
--- NOTE | 2017-12-19 00:15 | ED ---
Weakness HPI - General Source: patient Mode of arrival: EMS <Nadir Johnston - Last Filed: 12/19/17 00:14> <Kahlil Saenz - Last Filed: 12/19/17 01:57> - General Chief complaint: Weakness Stated complaint: weakness Time Seen by Provider: 12/19/17 00:10 - History of Present Illness Initial comments: This is an 82-year-old female to history of schizophrenia, urinary tract infection, and dependent edema who presents emergency department for generalized fatigue and weakness. The patient states is been going on for last couple of days. She states that she's been unable to walk because of the amount of weakness that she's having. She states that she has not had any fevers or chills. She does admit to some mild shortness of breath and cough. No chest pain. No nausea, vomiting, or diarrhea. No abdominal pain. No dysuria or hematuria. She states that she was sent here by the assisted living where she lives because of her weakness that she was having. Denies any other acute complaints at this time. (Nadir Johnston) - Related Data Previous Rx's Medication Instructions Recorded Donepezil [Aricept] 5 mg PO HS 30 Days tab 11/21/16 Furosemide [Lasix] 20 mg PO DAILY 30 Days tab 11/21/16 risperiDONE ODT [RisperDAL M-TAB] 1 mg PO HS 30 Days tab 11/21/16 Allergies Allergy/AdvReac Type Severity Reaction Status Date / Time No Known Allergies Allergy Verified 11/13/16 15:45 Review of Systems ROS Other: All systems not noted in ROS Statement are negative. <Nadir Johnston - Last Filed: 12/19/17 00:14> ROS Other: All systems not noted in ROS Statement are negative. <Kahlil Saenz - Last Filed: 12/19/17 01:57> ROS Statement: Those systems with pertinent positive or pertinent negative responses have been documented in the HPI. Past Medical History Past Medical History: Unable to Obtain Additional Past Medical History / Comment(s): pt unsure of hx, psychiatric hx, schizoprenia. CHF History of Any Multi-Drug Resistant Organisms: None Reported Past Surgical History: Unable to Obtain, Appendectomy, Tonsillectomy Past Psychological History: No Psychological Hx Reported Smoking Status: Never smoker Past Alcohol Use History: None Reported Past Drug Use History: None Reported - Past Family History Father Additional Family Medical History / Comment(s): Father from a stroke. Mother Additional Family Medical History / Comment(s): Mother from digestive problems. Brother(s) Additional Family Medical History / Comment(s): Patient has 1 brother but she has no contact with him. Patient does not have any sisters. Son(s) Additional Family Medical History / Comment(s): Patient has 1 son with no major medical problems. <Nadir Johnston - Last Filed: 12/19/17 00:14> General Exam <Nadir Johnston - Last Filed: 12/19/17 00:14> <Kahlil Saenz - Last Filed: 12/19/17 01:57> - General Exam Comments Initial Comments: Constitutional: Awake alert Appears comfortable Head: Normocephalic atraumatic Eyes: no conjunctival injection No scleral icterus EOMI ENT: Oropharynx is clear, oral mucosa is dry Neck: No JVD Supple Heart: Regular rate rhythm normal S1-S2 no murmurs Lungs: Clear to auscultation bilaterally No wheezing No rales Abdomen: Soft nondistended nontender Extremities: Mild edema bilateral lower extremities DP pulses intact Radial pulses intact Neuro: A&Ox3, 5 out of 5 strength in upper and lower [place] bilaterally, cranial nerves II through XII are grossly intact, pupils are 4 mm and reactive bilaterally No focal neurologic deficits Psych: Appropriate mood and affect (Nadir Johnston) Vital Signs 12/19/17 12/19/17 12/19/17 00:01 00:46 01:15 Temperature 97.8 F Pulse Rate 86 72 69 Respiratory 18 19 Rate Blood Pressure 106/55 122/56 93/54 O2 Sat by Pulse 90 L 95 95 Oximetry EKG Findings - EKG Comments: EKG Findings:: EKG showing normal sinus rhythm with a rate of 82. There is no abnormal ST segment changes. There is T-wave flattening in lead 3 and aVF and V5 and V6. QTC is 462. Other intervals normal. No ectopy. <Nadir Johnston - Last Filed: 12/19/17 00:14> Medical Decision Making <Nadir Johnston - Last Filed: 12/19/17 00:14> - Lab Data Result diagrams: 12/19/17 00:07 12/19/17 00:07 - Radiology Data Radiology results: image reviewed (Chest x-ray shows hiatal hernia. Infiltrate and atelectasis to the lung bases.) <Kahlil Saenz - Last Filed: 12/19/17 01:57> - Medical Decision Making Patient was reevaluated by myself, Dr. Saenz. Patient has concerns for dehydration. IV fluid boluses have been provided. Chest x-ray is concerning for possible pneumonia. Patient does not meet sepsis criteria. Patient will be covered with IV antibiotics. Dr. Raman has been paged, covering for Dr. clements, who admits for Dr. Brownlee. Patient does have paperwork as well as previous visits associated with Dr. Brownlee. (Kahlil Saenz) - Lab Data Lab Results 12/19/17 12/19/17 12/19/17 Range/Units 00:07 00:07 00:07 WBC 8.0 (3.8-10.6) k/uL RBC 4.41 (3.80-5.40) m/uL Hgb 12.3 (11.4-16.0) gm/dL Hct 36.8 (34.0-46.0) % MCV 83.5 (80.0-100.0) fL MCH 27.8 (25.0-35.0) pg MCHC 33.3 (31.0-37.0) g/dL RDW 16.7 H (11.5-15.5) % Plt Count 199 (150-450) k/uL Neutrophils % 77 % Lymphocytes % 10 % Monocytes % 10 % Eosinophils % 1 % Basophils % 0 % Neutrophils # 6.2 (1.3-7.7) k/uL Lymphocytes # 0.8 L (1.0-4.8) k/uL Monocytes # 0.8 (0-1.0) k/uL Eosinophils # 0.0 (0-0.7) k/uL Basophils # 0.0 (0-0.2) k/uL Anisocytosis Slight PT (9.0-12.0) sec INR (<1.2) APTT (22.0-30.0) sec Sodium 139 (137-145) mmol/L Potassium 4.0 (3.5-5.1) mmol/L Chloride 99 (98-107) mmol/L Carbon Dioxide 25 (22-30) mmol/L Anion Gap 15 mmol/L BUN 43 H (7-17) mg/dL Creatinine 1.40 H (0.52-1.04) mg/dL Est GFR (CKD-EPI)AfAm 40 (>60 ml/min/1.73 sqM) Est GFR (CKD-EPI)NonAf 35 (>60 ml/min/1.73 sqM) Glucose 119 H (74-99) mg/dL Calcium 8.4 (8.4-10.2) mg/dL Magnesium 2.1 (1.6-2.3) mg/dL Total Bilirubin 0.6 (0.2-1.3) mg/dL AST 43 H (14-36) U/L ALT 23 (9-52) U/L Alkaline Phosphatase 80 (38-126) U/L Troponin I (0.000-0.034) ng/mL Total Protein 6.8 (6.3-8.2) g/dL Albumin 3.4 L (3.5-5.0) g/dL Urine Color Urine Appearance (Clear) Urine pH (5.0-8.0) Ur Specific [place] (1.001-1.035) Urine Protein (Negative) Urine Glucose (UA) (Negative) Urine Ketones (Negative) Urine Blood (Negative) Urine Nitrite (Negative) Urine Bilirubin (Negative) Urine Urobilinogen (<2.0) mg/dL Ur Leukocyte Esterase (Negative) Urine RBC (0-5) /hpf Urine WBC (0-5) /hpf Amorphous Sediment (None) /hpf Urine Bacteria (None) /hpf Hyaline Casts (0-2) /lpf Urine Mucus (None) /hpf Blood Type A Positive Blood Type Confirm Blood Type Recheck CABO Indicated Antibody Screen NEGATIVE Spec Expiration Date 12/22/2017 - 230612/19/17 12/19/17 12/19/17 Range/Units 00:07 00:07 00:23 WBC (3.8-10.6) k/uL RBC (3.80-5.40) m/uL Hgb (11.4-16.0) gm/dL Hct (34.0-46.0) % MCV (80.0-100.0) fL MCH (25.0-35.0) pg MCHC (31.0-37.0) g/dL RDW (11.5-15.5) % Plt Count (150-450) k/uL Neutrophils % % Lymphocytes % % Monocytes % % Eosinophils % % Basophils % % Neutrophils # (1.3-7.7) k/uL Lymphocytes # (1.0-4.8) k/uL Monocytes # (0-1.0) k/uL Eosinophils # (0-0.7) k/uL Basophils # (0-0.2) k/uL Anisocytosis PT 10.3 (9.0-12.0) sec INR 1.1 (<1.2) APTT 25.8 (22.0-30.0) sec Sodium (137-145) mmol/L Potassium (3.5-5.1) mmol/L Chloride (98-107) mmol/L Carbon Dioxide (22-30) mmol/L Anion Gap mmol/L BUN (7-17) mg/dL Creatinine (0.52-1.04) mg/dL Est GFR (CKD-EPI)AfAm (>60 ml/min/1.73 sqM) Est GFR (CKD-EPI)NonAf (>60 ml/min/1.73 sqM) Glucose (74-99) mg/dL Calcium (8.4-10.2) mg/dL Magnesium (1.6-2.3) mg/dL Total Bilirubin (0.2-1.3) mg/dL AST (14-36) U/L ALT (9-52) U/L Alkaline Phosphatase (38-126) U/L Troponin I 0.030 (0.000-0.034) ng/mL Total Protein (6.3-8.2) g/dL Albumin (3.5-5.0) g/dL Urine Color Urine Appearance (Clear) Urine pH (5.0-8.0) Ur Specific [place] (1.001-1.035) Urine Protein (Negative) Urine Glucose (UA) (Negative) Urine Ketones (Negative) Urine Blood (Negative) Urine Nitrite (Negative) Urine Bilirubin (Negative) Urine Urobilinogen (<2.0) mg/dL Ur Leukocyte Esterase (Negative) Urine RBC (0-5) /hpf Urine WBC (0-5) /hpf Amorphous Sediment (None) /hpf Urine Bacteria (None) /hpf Hyaline Casts (0-2) /lpf Urine Mucus (None) /hpf Blood Type Blood Type Confirm A Positive Blood Type Recheck Antibody Screen Spec Expiration Date 12/19/17 Range/Units 00:36 WBC (3.8-10.6) k/uL RBC (3.80-5.40) m/uL Hgb (11.4-16.0) gm/dL Hct (34.0-46.0) % MCV (80.0-100.0) fL MCH (25.0-35.0) pg MCHC (31.0-37.0) g/dL RDW (11.5-15.5) % Plt Count (150-450) k/uL Neutrophils % % Lymphocytes % % Monocytes % % Eosinophils % % Basophils % % Neutrophils # (1.3-7.7) k/uL Lymphocytes # (1.0-4.8) k/uL Monocytes # (0-1.0) k/uL Eosinophils # (0-0.7) k/uL Basophils # (0-0.2) k/uL Anisocytosis PT (9.0-12.0) sec INR (<1.2) APTT (22.0-30.0) sec Sodium (137-145) mmol/L Potassium (3.5-5.1) mmol/L Chloride (98-107) mmol/L Carbon Dioxide (22-30) mmol/L Anion Gap mmol/L BUN (7-17) mg/dL Creatinine (0.52-1.04) mg/dL Est GFR (CKD-EPI)AfAm (>60 ml/min/1.73 sqM) Est GFR (CKD-EPI)NonAf (>60 ml/min/1.73 sqM) Glucose (74-99) mg/dL Calcium (8.4-10.2) mg/dL Magnesium (1.6-2.3) mg/dL Total Bilirubin (0.2-1.3) mg/dL AST (14-36) U/L ALT (9-52) U/L Alkaline Phosphatase (38-126) U/L Troponin I (0.000-0.034) ng/mL Total Protein (6.3-8.2) g/dL Albumin (3.5-5.0) g/dL Urine Color Yellow Urine Appearance Cloudy H (Clear) Urine pH 5.0 (5.0-8.0) Ur Specific [place] 1.013 (1.001-1.035) Urine Protein Trace H (Negative) Urine Glucose (UA) Negative (Negative) Urine Ketones Negative (Negative) Urine Blood Trace H (Negative) Urine Nitrite Negative (Negative) Urine Bilirubin Negative (Negative) Urine Urobilinogen <2.0 (<2.0) mg/dL Ur Leukocyte Esterase Small H (Negative) Urine RBC 1 (0-5) /hpf Urine WBC 5 (0-5) /hpf Amorphous Sediment Rare H (None) /hpf Urine Bacteria Moderate H (None) /hpf Hyaline Casts 8 H (0-2) /lpf Urine Mucus Rare H (None) /hpf Blood Type Blood Type Confirm Blood Type Recheck Antibody Screen Spec Expiration Date Disposition <Nadir Johnston - Last Filed: 12/19/17 00:14> Decision Time: 01:57 <Kahlil Saenz - Last Filed: 12/19/17 01:57> Clinical Impression: Dehydration, Pneumonia Disposition: ADMITTED IP TO THIS HOSP Referrals: None,Stated [Primary Care Provider] - 1-2 days
[2017-12-19 00:27] LABS: Anisocytosis Slight; Basophils % (A) 0 %; Eosinophils % (A) 1 %; HCT 36.8 % (34.0-46.0); HGB 12.3 gm/dL (11.4-16.0); Lymphocytes # (A) 0.8 k/uL (1.0-4.8); Lymphocytes % (A) 10 %; MCH 27.8 pg (25.0-35.0); MCHC 33.3 g/dL (31.0-37.0); MCV 83.5 fL (80.0-100.0); Mean Platelet Volume 8.2; Monocytes # (A) 0.8 k/uL (0-1.0); Monocytes % (A) 10 %; Neutrophils # (A) 6.2 k/uL (1.3-7.7); Neutrophils % (A) 77 %; Platelet Count 199 k/uL (150-450); RBC 4.41 m/uL (3.80-5.40); RDW 16.7 % (11.5-15.5)
[2017-12-19 00:35] LABS: INR 1.1 (<1.2); Partial Thromboplastin Time 25.8 sec (22.0-30.0); Prothrombin Time 10.3 sec (9.0-12.0)
--- NOTE | 2017-12-19 00:35 | XR ---
EXAMINATION TYPE: XR chest 2V DATE OF EXAM: 12/19/2017 COMPARISON: 11/13/2016 HISTORY: Cough TECHNIQUE: Frontal and lateral views of the chest are obtained. FINDINGS: Hiatal hernia. There is patchy linear density at the left lung base. There is no heart leeanna lure. Thoracic aorta is atheromatous. There are chest leads. IMPRESSION: There is hiatal hernia that is increased compared to old exam. There is some infiltrate and atelectasis at the lung bases that is slightly increased compared to old exam. No gross heart leeanna lure.
[2017-12-19 00:38] LABS: Albumin 3.4 g/dL (3.5-5.0); Calcium 8.4 mg/dL (8.4-10.2); Magnesium 2.1 mg/dL (1.6-2.3); Total Bilirubin 0.6 mg/dL (0.2-1.3); Total Protein 6.8 g/dL (6.3-8.2)
[2017-12-19 00:55] LABS: Amorphous Sediment,Urine Rare /hpf; Appearance,Urine Cloudy (Clear); Bacteria,Urine Moderate /hpf; Bilirubin,Urine Negative (Negative); Blood,Urine Trace (Negative); Color,Urine Yellow; Glucose,Urine (UA) Negative (Negative); Hyaline Casts,Urine 8 /lpf (0-2); Ketones,Urine Negative (Negative); Leukocyte Esterase,Urine Small (Negative); Mucus,Urine Rare /hpf; Nitrite,Urine Negative (Negative); Protein,Urine Trace (Negative); RBC,Urine 1 /hpf (0-5); Specific Gravity,Urine 1.013 (1.001-1.035); Urobilinogen,Urine <2.0 mg/dL (<2.0); WBC,Urine 5 /hpf (0-5)
[2017-12-19] MEDS: SODIUM CHLORIDE 0.9% 1,000 ML IV SCH ×6 (01:05→16:02)
[2017-12-19] MEDS ORDERED: SODIUM CHLORIDE 0.9% 500 ML IV STA (01:57)
[2017-12-19] MEDS ORDERED: cefTRIAXone IN SWFI 1,000 MG/10 ML SYRINGE IVP STA (01:58)
[2017-12-19] MEDS ORDERED: PNEUMONIA PROTOCOL UTILIZED 1 EACH MISC PO PRN (01:58)
[2017-12-19] MEDS: AZITHROMYCIN 500 MG in SODIUM CHLORIDE 0.9% 250 ML IVPB STA ×2 (02:19→02:20)
[2017-12-19 03:04] VITALS: BMI 22.8
[2017-12-19] MEDS ORDERED: SODIUM CHLORIDE 0.9% 1,000 ML IV ONE ×2 (09:56→10:27)
--- NOTE | 2017-12-19 10:50 | P.HPIM ---
History of Present Illness H&P Date: 12/19/17 Information is obtained from the medical records patient and she [employer] Conversation This is a pleasant 82 years old lady with past medical history of chronic undifferentiated schizophrenia, status post BCG in the past, UTI and peripheral edema, as per previous documentation she patient doesn't follow up with PCP as she has been seen by physician in many years except when she comes to the hospital, she has a guardian, she presents with fatigue and weakness for 2 days duration, associated with yellow phlegm, patient denies CP/SOB, no abdominal pain no change in urine or bowel habit, no fever Patient blood pressure is only minimal signs on admission was 96/51 this morning is 77/41 Past Medical History Past Medical History: Unable to Obtain Additional Past Medical History / Comment(s): pt unsure of hx, psychiatric hx, schizoprenia. CHF? History of Any Multi-Drug Resistant Organisms: None Reported Past Surgical History: Unable to Obtain, Appendectomy, Tonsillectomy Past Anesthesia/Blood Transfusion Reactions: No Reported Reaction Past Psychological History: No Psychological Hx Reported Smoking Status: Never smoker Past Alcohol Use History: None Reported Additional Past Alcohol Use History / Comment(s): She denies history of smoking. She denies medical marijuana, marijuana, street drug or alcohol use. She is a and lives alone. Past Drug Use History: None Reported - Past Family History Father Additional Family Medical History / Comment(s): Father from a stroke. Mother Additional Family Medical History / Comment(s): Mother from digestive problems. Brother(s) Additional Family Medical History / Comment(s): Patient has 1 brother but she has no contact with him. Patient does not have any sisters. Son(s) Additional Family Medical History / Comment(s): Patient has 1 son with no major medical problems. Medications and Allergies Home Medications Medication Instructions Recorded Confirmed Type risperiDONE ODT [RisperDAL M-TAB] 1 mg PO HS 30 Days tab 11/21/16 12/19/17 Rx Acetaminophen [Tylenol 8 Hour] 650 mg PO Q6H PRN 12/19/17 12/19/17 History Cholecalciferol [Vitamin D3] 1,000 unit PO DAILY 12/19/17 12/19/17 History Donepezil [Aricept] 10 mg PO HS 12/19/17 12/19/17 History Ensure 1 can PO BID-W/MEALS 12/19/17 12/19/17 History Escitalopram [Lexapro] 10 mg PO HS 12/19/17 12/19/17 History Ferrous Sulfate [Feosol] 325 mg PO BID 12/19/17 12/19/17 History Furosemide [Lasix] 40 mg PO DAILY 12/19/17 12/19/17 History Loperamide [Imodium] 2 - 4 mg PO DIRECTED PRN 12/19/17 12/19/17 History Allergies Allergy/AdvReac Type Severity Reaction Status Date / Time No Known Allergies Allergy Verified 12/19/17 08:33 Physical Exam Vitals: Vital Signs Temp Pulse Pulse Resp BP BP Pulse Ox 12/19/17 08:44 68 17 12/19/17 07:00 97.7 F 68 17 86/54 90 L 12/19/17 06:59 97.7 F 68 17 86/54 90 L 12/19/17 02:58 97.9 F 75 16 96/51 94 L 12/19/17 02:20 70 16 105/64 98 12/19/17 02:00 70 16 82/48 96 12/19/17 01:15 69 19 93/54 95 12/19/17 00:46 72 122/56 95 12/19/17 00:01 97.8 F 86 18 106/55 90 L Intake and Output 12/18/17 12/19/17 12/19/17 22:59 06:59 14:59 Intake Total 1040 Output Total 50 Balance 1040 -50 Intake: Intake, IV Titration 450 Amount Azithromycin 500 mg In 250 Sodium Chloride 0.9% 250 ml @ 125 mls/hr IVPB ONCE STA Rx#:[id number] Sodium Chloride 0.9% 1, 200 000 ml @ 100 mls/hr IV . Q10H TERESO Rx#:[id number] Oral 590 Output: Urine 50 Other: Voiding Method Bedside Commode # Voids 1 # Bowel Movements 1 Weight 60.5 kg Constitutional: No acute distress, conversant, pleasant, she is partially alert to place and person, but not to time Eyes: Anicteric sclerae, moist conjunctiva, no lid-lag PERRLA ENMT: NC/AT Oropharynx clear, no erythema, exudates Neck: Supple, FROM, no masses, or JVD No carotid bruits No thyromegaly Lungs: Clear to auscultation Clear to percussion Normal respiratory effort, no accessory muscle use Cardiovascular: Heart regular in rate and rhythm, No murmurs, gallops, or rubs No peripheral edema Abdominal: Soft Nontender, no guarding, rebound or rigidity Abdomen moving with respiration Normoactive bowel sounds No hepatomegaly, No splenomegaly No palpable mass No abdominal wall hernia noted Skin: Normal temperature, tone, texture, turgor No induration No subcutaneous nodules No rash, lesions No ulcers Extremities: No digital cyanosis No clubbing Pedal pulses intact and symmetrical Radial pulses intact and symmetrical no calf tenderness Psychiatric: Alert and oriented to person, place and time Appropriate affect Intact judgement Neuro: Muscles Strength 5/5 in all 4 extremities Sensation to liht touch grossly present throughout Cranial nerves II-XII grossly intact No focal sensory deficits Results CBC & Chem 7: 12/19/17 00:07 12/19/17 00:07 Labs: Abnormal Lab Results - Last 24 Hours (Table) 12/19/17 12/19/17 12/19/17 Range/Units 00:07 00:07 00:36 RDW 16.7 H (11.5-15.5) % Lymphocytes # 0.8 L (1.0-4.8) k/uL BUN 43 H (7-17) mg/dL Creatinine 1.40 H (0.52-1.04) mg/dL Glucose 119 H (74-99) mg/dL AST 43 H (14-36) U/L Albumin 3.4 L (3.5-5.0) g/dL Urine Appearance Cloudy H (Clear) Urine Protein Trace H (Negative) Urine Blood Trace H (Negative) Ur Leukocyte Esterase Small H (Negative) Amorphous Sediment Rare H (None) /hpf Urine Bacteria Moderate H (None) /hpf Hyaline Casts 8 H (0-2) /lpf Urine Mucus Rare H (None) /hpf Thrombosis Risk Factor Assmnt - Choose All That Apply Any of the Below Risk Factors Present?: Yes Each Factor Represents 1 point: Obesity (BMI >25) Each Risk Factor Represents 3 Points: Age 75 years or older Other congenital or acquired thrombophilia - If yes, enter type in comment: No Thrombosis Risk Factor Assessment Total Risk Factor Score: 4 Thrombosis Risk Factor Assessment Level: Moderate Risk Assessment and Plan Assessment: -Possible pneumonia, community-acquired,CXR there is some infiltrated abdomen lung bases that is slightly increased compared to old exam, no blood culture and sputum culture, start ceftriaxone and doxycycline -Hypotension, her blood pressure baseline Jeevan 116/59 on 11/2016, hold Lasix give normal saline boluses for low blood pressure, no leukocytosis, no fever, UA is a slightly abnormal showing small leukocyte esterase moderate bacteria and 5 white blood cells, CXR there is some infiltrated abdomen lung bases that is slightly increased compared to old exam, most likely it is related to her pna Check lactic acid blood culture, and sputum c/s -Possible acute kidney injury creatinine is 1.4, unknown baseline -History of leg edema, Lasix and in view of low blood pressure, check echocardiogram -History of schizophrenia, normoactive tissue, patient sitting, intubated, she denies hallucination or delusions, continue same treatment and follow-up as an outpatient -Generalized weakness mostly related to her infection and hypotension, check PT/ OT pending
[2017-12-19] MEDS: SODIUM CHLORIDE 0.9% 250 ML IV SCH ×5 (16:02→17:37)
[2017-12-19 16:58] LABS: Anisocytosis Slight; Basophils % (A) 0 %; Eosinophils % (A) 0 %; Lymphocytes # (A) 0.8 k/uL (1.0-4.8); Lymphocytes % (A) 17 %; MCH 28.4 pg (25.0-35.0); MCHC 33.5 g/dL (31.0-37.0); MCV 84.6 fL (80.0-100.0); Mean Platelet Volume 8.6; Monocytes # (A) 0.4 k/uL (0-1.0); Monocytes % (A) 9 %; Neutrophils # (A) 3.3 k/uL (1.3-7.7); Neutrophils % (A) 71 %; Platelet Count 160 k/uL (150-450); RBC 3.31 m/uL (3.80-5.40); RDW 16.5 % (11.5-15.5); WBC 4.6 k/uL (3.8-10.6)
[2017-12-19 17:01] LABS: HGB 9.4 gm/dL (11.4-16.0)
[2017-12-19] MEDS: cefTRIAXone IN SWFI 1,000 MG/10 ML SYRINGE IVP SCH (22:51)
[2017-12-19] MEDS: AZITHROMYCIN 500 MG TAB PO SCH (22:51)
[2017-12-19] MEDS: CHERRY FLAVOR 60 ML BOTTLE PO SCH (23:08)
[2017-12-19] MEDS: VANCOMYCIN ORAL SOLUTION 250 MG/5 ML BOTTLE PO SCH (23:08)
[2017-12-20] MEDS: SODIUM CHLORIDE 0.9% 1,000 ML IV SCH (04:39)
[2017-12-20] MEDS: CHERRY FLAVOR 60 ML BOTTLE PO SCH ×4 (05:21→23:00)
[2017-12-20] MEDS: VANCOMYCIN ORAL SOLUTION 250 MG/5 ML BOTTLE PO SCH ×4 (05:21→23:00)
[2017-12-20 07:04] LABS: Anisocytosis Slight; Basophils % (A) 0 %; Eosinophils % (A) 1 %; HCT 30.8 % (34.0-46.0); HGB 10.1 gm/dL (11.4-16.0); Lymphocytes # (A) 0.4 k/uL (1.0-4.8); Lymphocytes % (A) 7 %; MCH 28.1 pg (25.0-35.0); MCV 85.3 fL (80.0-100.0); Mean Platelet Volume 8.3; Monocytes # (A) 0.3 k/uL (0-1.0); Monocytes % (A) 6 %; Neutrophils # (A) 4.8 k/uL (1.3-7.7); Neutrophils % (A) 85 %; Platelet Count 150 k/uL (150-450); RBC 3.61 m/uL (3.80-5.40); RDW 16.8 % (11.5-15.5); WBC 5.7 k/uL (3.8-10.6)
[2017-12-20 07:16] LABS: Calcium 7.4 mg/dL (8.4-10.2); Potassium 3.3 mmol/L (3.5-5.1)
[2017-12-20] MEDS ORDERED: POTASSIUM CHLORIDE ER 20 MEQ TAB.ER PO STA (08:30)
[2017-12-20] MEDS ORDERED: LOPERAMIDE 2 MG CAP PO PRN (08:32)
[2017-12-20] MEDS ORDERED: metroNIDAZOLE-NS PMX 500 MG in SALINE 1 100ML.BAG IVPB SCH (08:45)
--- NOTE | 2017-12-20 08:51 | P.PN ---
Subjective Progress Note Date: 12/20/17 Patient is seen and examined by me at bedside Patient had a big loose bowel movement yesterday, we checked for C. diff which was positive and for FOBT which was negative Patient denies abdominal pain nausea vomiting Her blood pressure is more stable today Objective - Vital Signs Vital signs: Vital Signs Temp 99.0 F 12/20/17 08:14 Pulse 66 12/20/17 08:14 Resp 16 12/20/17 08:14 BP 114/68 12/20/17 08:14 Pulse Ox 92 L 12/20/17 08:14 Intake & Output 12/19/17 12/20/17 12/20/17 18:59 06:59 18:59 Intake Total 2180 Output Total 50 Balance -50 2180 Weight 60.5 kg Intake: Intake, IV Titration 800 Amount Sodium Chloride 0.9% 1, 800 000 ml @ 100 mls/hr IV . Q10H TERESO Rx#:[id number] Oral 1380 Output: Urine 50 Other: Voiding Method Bedside Commode Bedside Commode # Voids 3 2 # Bowel Movements 2 2 Constitutional: No acute distress, conversant, pleasant Eyes: Anicteric sclerae, moist conjunctiva, no lid-lag PERRLA ENMT: NC/AT Oropharynx clear, no erythema, exudates Neck: Supple, FROM, no masses, or JVD No carotid bruits No thyromegaly Lungs: Clear to auscultation Clear to percussion Normal respiratory effort, no accessory muscle use Cardiovascular: Heart regular in rate and rhythm, No murmurs, gallops, or rubs No peripheral edema Abdominal: Soft Nontender, no guarding, rebound or rigidity Abdomen moving with respiration Normoactive bowel sounds No hepatomegaly, No splenomegaly No palpable mass No abdominal wall hernia noted Skin: Normal temperature, tone, texture, turgor No induration No subcutaneous nodules No rash, lesions No ulcers Extremities: No digital cyanosis No clubbing Pedal pulses intact and symmetrical Radial pulses intact and symmetrical Normal gait and station - No calf tenderness , has some leg edema Psychiatric: Alert and oriented to person, place and time Appropriate affect Intact judgement Neuro: Muscles Strength 5/5 in all 4 extremities Sensation to light touch grossly present throughout Cranial nerves II-XII grossly intact No focal sensory deficits - Labs CBC & Chem 7: 12/20/17 06:48 12/20/17 06:48 Labs: Abnormal Lab Results - Last 24 Hours (Table) 12/19/17 12/19/17 12/20/17 Range/Units 16:22 17:15 06:48 RBC 3.31 L 3.61 L (3.80-5.40) m/uL Hgb 9.4 L D 10.1 L (11.4-16.0) gm/dL Hct 28.0 L 30.8 L (34.0-46.0) % RDW 16.5 H 16.8 H (11.5-15.5) % Lymphocytes # 0.8 L 0.4 L (1.0-4.8) k/uL Potassium (3.5-5.1) mmol/L Chloride (98-107) mmol/L BUN (7-17) mg/dL Glucose (74-99) mg/dL Calcium (8.4-10.2) mg/dL C. difficile (EIA) Intrp Positive A (Negative) 12/20/17 Range/Units 06:48 RBC (3.80-5.40) m/uL Hgb (11.4-16.0) gm/dL Hct (34.0-46.0) % RDW (11.5-15.5) % Lymphocytes # (1.0-4.8) k/uL Potassium 3.3 L (3.5-5.1) mmol/L Chloride 108 H (98-107) mmol/L BUN 18 H (7-17) mg/dL Glucose 108 H (74-99) mg/dL Calcium 7.4 L (8.4-10.2) mg/dL C. difficile (EIA) Intrp (Negative) Microbiology - Last 24 Hours (Table) 12/19/17 02:46 Blood Culture - Preliminary Blood No Growth after 24 hours 12/19/17 00:36 Urine Culture - Preliminary Urine,Catheterized Assessment and Plan Assessment: -Possible pneumonia, community-acquired,CXR there is some infiltrated abdomen lung bases that is slightly increased compared to old exam, no positive blood culture and sputum culture not done , c/w ceftriaxone and zithromax , check EKG : pending -C. diff colitis, no abdominal pain, start Flagyl, check abdominal x-ray -Hypotension, more stable today lactic acid 0.8 wnl -Possible acute kidney injury creatinine is 1.4 went down to 0.7 [WNL] -History of leg edema, was on Lasix and held in view of low blood pressure, check echocardiogram -History of schizophrenia, not active tissue, patient sitting in bed , she denies hallucination or delusions, continue same treatment and follow-up as an outpatient -Generalized weakness mostly related to her infection and hypotension, check PT/ OT pending
[2017-12-20] MEDS: HEPARIN SODIUM,PORCINE 5,000 UNIT/ML 1 ML VIAL SQ SCH ×2 (09:28→22:41)
[2017-12-20] MEDS: FERROUS SULFATE 325 MG TAB PO SCH ×2 (09:28→22:43)
[2017-12-20] MEDS: CHOLECALCIFEROL 1,000 UNIT TAB PO SCH (09:28)
--- NOTE | 2017-12-20 10:12 | XR ---
EXAMINATION TYPE: XR abdomen 1V , 2 VIEWS DATE OF EXAM ORDERED: 12/20/2017 HISTORY: c diff colitis . COMPARISON: None. FINDINGS: The lungs are overinflated. There is bibasilar airspace disease. There are small, bilatera l effusions. There is severe degenerative changes within the lumbar and thoracic spines. There is a moderate dextr oscoliosis. The abdominal gas pattern is within normal limits. There is no evidence of obstruction or free air. T here are phleboliths in the pelvis. IMPRESSION: 1. COPD. 2. BIBASILAR AIRSPACE DISEASE. 3. SMALL, BILATERAL EFFUSIONS. 4. NONOBSTRUCTIVE BOWEL GAS PATTERN. 5. DEXTROSCOLIOSIS WITH MARKED DEGENERATIVE CHANGE.
--- NOTE | 2017-12-20 14:54 | ECHOF ---
Referral Reason:History of leg edema MEASUREMENTS -------- HEIGHT: 162.6 cm WEIGHT: 60.3 kg BP: RVIDd: 2.8 cm (< 3.3) IVSd: 0.8 cm (0.6 - 1.1) LVIDd: 4.2 cm (3.9 - 5.3) LVPWd: 1.0 cm (0.6 - 1.1) IVSs: 1.5 cm LVIDs: 2.5 cm LVPWs: 1.4 cm LAESV Index (A-L): 47.91 ml/m Ao Diam: 3.2 cm (2.0 - 3.7) AV Cusp: 1.1 cm (1.5 - 2.6) LA Diam: 2.9 cm (2.7 - 3.8) MV EXCURSION: 14.273 mm (> 18.000) MV EF SLOPE: 81 mm/s (70 - 150) EPSS: 0.5 cm MV E Sadiq: 1.34 m/s MV DecT: 287 ms MV A Sadiq: 1.32 m/s MV E/A Ratio: 1.02 AV maxP.35 mmHg AV meanP.22 mmHg RAP: 5.00 mmHg RVSP: 37.34 mmHg FINDINGS -------- Sinus rhythm. This was a technically good study. The left ventricular size is normal. Left ventricular wall thickness is normal. Overall left vent ricular systolic function is normal with, an EF between 55 - 60 %. The right ventricle is normal in size. LA is severely dilated >40 ml/m2 The right atrium is normal in size. Aortic valve is trileaflet and is moderately thickened. There is mild aortic stenosis present. Pe ak/mean gradient across the Aortic Valve is 19.35mmHg / 11.22mmHg. The mitral valve leaflets are moderately thickened. Moderate mitral regurgitation is present , pred ominately a posteriorly directed jet. Mild tricuspid regurgitation present. There is mild pulmonary hypertension. The right ventricular systolic pressure, as measured by Doppler, is 37.34mmHg. There is no pulmonic regurgitation present. The aortic root size is normal. Normal inferior vena cava with normal inspiratory collapse consistent with estimated right atrial pre ssure of 5 mmHg. There is no pericardial effusion. CONCLUSIONS -------- 1. Sinus rhythm. 2. This was a technically good study. 3. The left ventricular size is normal. 4. Left ventricular wall thickness is normal. 5. Overall left ventricular systolic function is normal with, an EF between 55 - 60 %. 6. LA is severely dilated >40 ml/m2 7. Aortic valve is trileaflet and is moderately thickened. 8. There is mild aortic stenosis present. 9. Peak/mean gradient across the Aortic Valve is 19.35mmHg / 11.22mmHg. 10. The mitral valve leaflets are moderately thickened. 11. Moderate mitral regurgitation is present. 12. , predominately a posteriorly directed jet. 13. Mild tricuspid regurgitation present. 14. There is mild pulmonary hypertension. 15. There is no pulmonic regurgitation present. 16. The aortic root size is normal. 17. Normal inferior vena cava with normal inspiratory collapse consistent with estimated right atrial pressure of 5 mmHg. 18. There is no pericardial effusion. [employer] FIELD SERVICE ENGINEER: Aixa Sheehan RDCS
[2017-12-20] MEDS ORDERED: NON-FORMULARY DRUG (Ensure 1 CAN) PO SCH (17:30)
[2017-12-20 18:03] LABS: Iron Saturation 6.71 (12.00-45.00)
[2017-12-20] MEDS: DONEPEZIL 10 MG TAB PO SCH (22:42)
[2017-12-20] MEDS: cefTRIAXone IN SWFI 1,000 MG/10 ML SYRINGE IVP SCH (22:42)
[2017-12-20] MEDS: AZITHROMYCIN 500 MG TAB PO SCH (22:42)
[2017-12-20] MEDS: ESCITALOPRAM 10 MG TAB PO SCH (22:43)
[2017-12-20] MEDS: risperiDONE ODT 1 MG TAB PO SCH (22:43)
[2017-12-21] MEDS: VANCOMYCIN ORAL SOLUTION 250 MG/5 ML BOTTLE PO SCH ×4 (06:13→23:26)
[2017-12-21] MEDS: POTASSIUM CHLORIDE ER 20 MEQ TAB.ER PO SCH ×3 (06:13→12:01)
[2017-12-21] MEDS: CHERRY FLAVOR 60 ML BOTTLE PO SCH ×4 (06:13→23:27)
[2017-12-21 07:28] LABS: Anisocytosis Slight; Basophils % (A) 0 %; Eosinophils % (A) 0 %; HCT 32.9 % (34.0-46.0); Lymphocytes # (A) 0.5 k/uL (1.0-4.8); Lymphocytes % (A) 8 %; MCH 28.1 pg (25.0-35.0); MCHC 33.4 g/dL (31.0-37.0); MCV 84.2 fL (80.0-100.0); Mean Platelet Volume 8.1; Monocytes # (A) 0.4 k/uL (0-1.0); Monocytes % (A) 6 %; Neutrophils # (A) 5.3 k/uL (1.3-7.7); Neutrophils % (A) 85 %; Platelet Count 167 k/uL (150-450); RDW 16.7 % (11.5-15.5); WBC 6.3 k/uL (3.8-10.6)
[2017-12-21 07:38] LABS: Anion Gap 8 mmol/L; Blood Urea Nitrogen 13 mg/dL (7-17); Calcium 7.8 mg/dL (8.4-10.2); Carbon Dioxide 21 mmol/L (22-30); Chloride 108 mmol/L (98-107); Glucose 125 mg/dL (74-99); Potassium 3.3 mmol/L (3.5-5.1); Sodium 137 mmol/L (137-145)
--- NOTE | 2017-12-21 08:26 | XR ---
EXAMINATION TYPE: XR chest 1V portable DATE OF EXAM: 12/21/2017 HISTORY: SOB. REFERENCE: Previous study dated 12/19/2017. FINDINGS: The lungs are overinflated. The heart is enlarged. There are bilateral effusions. There is bibasilar airspace disease. There is a hiatal hernia behind the heart. IMPRESSION: 1. COPD. 2. CARDIOMEGALY. 3. BILATERAL EFFUSIONS. 4. BIBASILAR AIRSPACE DISEASE.
[2017-12-21] MEDS ORDERED: FUROSEMIDE 10 MG/ML 4 ML VIAL IV STA (08:53)
[2017-12-21] MEDS: CHOLECALCIFEROL 1,000 UNIT TAB PO SCH (08:59)
[2017-12-21] MEDS: FERROUS SULFATE 325 MG TAB PO SCH ×2 (08:59→21:06)
[2017-12-21] MEDS: HEPARIN SODIUM,PORCINE 5,000 UNIT/ML 1 ML VIAL SQ SCH ×2 (08:59→21:06)
--- NOTE | 2017-12-21 09:20 | P.PN ---
Subjective Patient is examined by me malignant sides Patient was limited hypoxic at 89% on 2 L nasal cannula this morning's chest x- ray was done which shows bilateral pleural effusion concerning for pulmonary congestion , blunt pressure is stable so decreased fluid drained from 100-50 mL per hour and give her some Lasix, recent ankle from 12/2017 shows an EF 55-60% Objective - Vital Signs Vital signs: Vital Signs Temp 100.3 F H 12/21/17 07:44 Pulse 71 12/21/17 07:44 Resp 16 12/21/17 07:44 BP 130/72 12/21/17 07:44 Pulse Ox 90 L 12/21/17 07:44 Intake & Output 12/20/17 12/21/17 12/21/17 18:59 06:59 18:59 Intake Total 1590 Balance 1590 Intake: Intake, IV Titration 800 Amount Sodium Chloride 0.9% 1, 800 000 ml @ 100 mls/hr IV . Q10H TERESO Rx#:[id number] Oral 790 Other: Voiding Method Bedside Commode Bedside Commode # Voids 1 1 - Exam Constitutional: No acute distress, conversant, pleasant Eyes: Anicteric sclerae, moist conjunctiva, no lid-lag PERRLA ENMT: NC/AT Oropharynx clear, no erythema, exudates Neck: Supple, FROM, no masses, or JVD No carotid bruits No thyromegaly Lungs: Clear to auscultation Clear to percussion Normal respiratory effort, no accessory muscle use Cardiovascular: Heart regular in rate and rhythm, No murmurs, gallops, or rubs No peripheral edema Abdominal: Soft Nontender, no guarding, rebound or rigidity Abdomen moving with respiration Normoactive bowel sounds No hepatomegaly, No splenomegaly No palpable mass No abdominal wall hernia noted Skin: Normal temperature, tone, texture, turgor No induration No subcutaneous nodules No rash, lesions No ulcers Extremities: No digital cyanosis No clubbing Pedal pulses intact and symmetrical Radial pulses intact and symmetrical Normal gait and station No calf tenderness Psychiatric: Alert and oriented to person, place and time Appropriate affect Intact judgement Neuro: Muscles Strength 5/5 in all 4 extremities Sensation to light touch grossly present throughout Cranial nerves II-XII grossly intact No focal sensory deficits - Labs CBC & Chem 7: 12/21/17 06:50 12/21/17 06:50 Labs: Abnormal Lab Results - Last 24 Hours (Table) 12/19/17 12/21/17 12/21/17 Range/Units 00:14 06:50 06:50 Hgb 11.0 L (11.4-16.0) gm/dL Hct 32.9 L (34.0-46.0) % RDW 16.7 H (11.5-15.5) % Lymphocytes # 0.5 L (1.0-4.8) k/uL Potassium 3.3 L (3.5-5.1) mmol/L Chloride 108 H (98-107) mmol/L Carbon Dioxide 21 L (22-30) mmol/L Glucose 125 H (74-99) mg/dL Calcium 7.8 L (8.4-10.2) mg/dL Iron 22 L (50-170) ug/dL Iron Saturation 6.71 L (12.00-45.00) Microbiology - Last 24 Hours (Table) 12/19/17 00:36 Urine Culture - Final Urine,Catheterized Escherichia coli 12/19/17 02:46 Blood Culture - Preliminary Blood No Growth after 48 hours Assessment and Plan Assessment: -Possible pneumonia, community-acquired,CXR there is some infiltrated abdomen lung bases that is slightly increased compared to old exam, no positive blood culture and 48 hours and sputum culture not done , c/w ceftriaxone and zithromax , check EKG: pending -Urine cultures positive for E. coli which is sensitive to ceftriaxone -C. diff colitis, no abdominal pain, start Flagyl, check abdominal x-ray, pt has fever on 12/21, repeat BC, call ID consult -Hypotension, resolved lactic acid 0.8 wnl -Possible acute kidney injury creatinine is 1.4 went down to 0.7 [WNL] -History of leg edema, was on Lasix and held in view of low blood pressure, check echocardiogram EF 55-60% -History of schizophrenia, not active tissue, patient sitting in bed , she denies hallucination or delusions, continue same treatment and follow-up as an outpatient -Generalized weakness mostly related to her infection and hypotension, check PT/ OT pending
[2017-12-21] MEDS: SODIUM CHLORIDE 0.9% 1,000 ML IV SCH ×3 (09:22→21:06)
[2017-12-21] MEDS: ACETAMINOPHEN TAB 325 MG TAB PO PRN (09:39)
[2017-12-21] MEDS: cefTRIAXone IN SWFI 1,000 MG/10 ML SYRINGE IVP SCH (17:06)
[2017-12-21] MEDS: ESCITALOPRAM 10 MG TAB PO SCH (21:06)
[2017-12-21] MEDS: DONEPEZIL 10 MG TAB PO SCH (21:06)
[2017-12-21] MEDS: risperiDONE ODT 1 MG TAB PO SCH (21:06)
--- NOTE | 2017-12-21 22:00 | CONS ---
CONSULTATION DATE OF CONSULTATION: 12/21/2017. REASON FOR CONSULTATION: Fever. HISTORY OF PRESENT ILLNESS: The patient is an 82-year-old female who presented to the ER at [facility] on 12/19/2017 with chief complaints of generalized fatigue and weakness. Symptoms have been going on for few days prior to presentation to the Hospital. The patient is unable to walk because motor of weakness. The patient was having no clear history of any fever or any chills. Some mild shortness of breath or cough. No nausea, vomiting, or any diarrhea or any significant urinary symptoms. With these symptoms, the patient has been evaluated by the ER physician. The patient did have a chest x-ray on the , which shows hiatal hernia. from prior exams with some infiltrate and changes at the lung bases slightly increased. No heart failure. An x-ray repeated this morning shows COPD, cardiomegaly, bilateral effusion, bilateral airspace disease. The patient has been afebrile on admission did have a low-grade fever this morning of 100.3. The patient did have normal white count of 8.0. Stool for C diff done on the was positive and the patient I was asked to see the patient for further recommendation for evaluation of this fever and apparently currently on 3 different antibiotics in addition to the Imodium. REVIEW OF SYSTEMS: Constitutional: Positive for weakness and low-grade fever. Eyes no complaint. ENT no complaint. Respiratory as per HPI. Cardiovascular: No complaint. Genitourinary: As per HPI. GASTROINTESTINAL: As per HPI. Musculoskeletal no complaint. Integumentary: No complaint. Psychological no complaint. Endocrine no complaint. Neurological no complaint. PAST MEDICAL HISTORY: Significant for schizophrenia, CHF. PAST SURGICAL HISTORY: Appendectomy, tonsillectomy. SOCIAL HISTORY: No history of smoking, drinking or drug use. FAMILY HISTORY: Father history of stroke. ALLERGIES: No known drug allergies. MEDICATIONS: The patient is currently on Tylenol, Zithromax, vitamin D3, Aricept, Lexapro, iron sulfate, heparin, Imodium, risperidone, vancomycin 250 p.o. q.6 hours. EXAMINATION: Blood pressure 119/76 with pulse of 73, temperature 99, she is 94% on 3 L nasal cannula. General description is an elderly female up in the bed in no distress. No tachypnea or accessory muscles of respiration use. HEENT: Shows pallor. No scleral icterus. Oral mucous membranes dry. No pharyngeal erythema or thrush. Neck trachea central. No thyromegaly. Lungs unlabored breathing. Clear to auscultation. No wheeze or crackles. Heart S1, S2. Regular rate and rhythm. ABDOMEN: Soft, no tenderness. No guarding or rigidity. EXTREMITIES: No edema of the feet. Skin examination: No rashes. No masses palpable. Neurological: Patient is awake, alert, oriented x2. Mood and affect normal. LABS: Hemoglobin is 11, white count 6.3, BUN of 13, creatinine 0.65. Electrolytes have been normal. Urine was positive with cloudy small leukocyte esterases, moderate bacteria. Currently showing an E coli that was sensitive to Rocephin. Patient was already on. DIAGNOSTIC IMPRESSION AND PLAN: Patient with hospitalized weakness which is likely multifactorial in this patient possibly have a component of urinary tract infection with an E coli that has been adequately treated. Also with diarrhea with stool for C diff positive to be the likely etiology for generalized weakness. Clinically doubt pneumonia. Hence we will recommend discontinuation of antibiotic therapy to prevent any worsening of underlying C difficile colitis and apparently her mild urinary tract infection which was adequately treated with 3 doses of Rocephin that the patient has received. PLAN: 1. Discontinue the Rocephin, Zithromax and Imodium. 2. Vancomycin 250 p.o. q.6 hours for underlying C difficile colitis and will add Questran for symptomatic relief and toxin binding. 3. Depending upon the clinical response as well as we will adjust her medications further if needed. Thank you for this consultation. Will follow this patient with you. MMODL / IJN: [id number] /
[2017-12-22] MEDS ORDERED: FUROSEMIDE 10 MG/ML 4 ML VIAL IV STA (03:40)
[2017-12-22] MEDS ORDERED: IPRATROPIUM-ALBUTEROL 3 ML NEB INHALATION PRN (03:40)
[2017-12-22] MEDS: SODIUM CHLORIDE 0.9% 1,000 ML IV SCH (03:50)
[2017-12-22] MEDS: IPRATROPIUM-ALBUTEROL 3 ML NEB INHALATION SCH ×4 (07:11→19:51)
[2017-12-22 07:49] LABS: Anisocytosis Slight; Basophils % (A) 0 %; Eosinophils % (A) 0 %; Lymphocytes % (A) 12 %; MCH 27.4 pg (25.0-35.0); MCHC 32.4 g/dL (31.0-37.0); MCV 84.3 fL (80.0-100.0); Mean Platelet Volume 9.2; Monocytes # (A) 0.6 k/uL (0-1.0); Monocytes % (A) 7 %; Neutrophils # (A) 6.4 k/uL (1.3-7.7); Neutrophils % (A) 79 %; Platelet Count 159 k/uL (150-450); RBC 4.03 m/uL (3.80-5.40); RDW 16.9 % (11.5-15.5); WBC 8.1 k/uL (3.8-10.6)
[2017-12-22] MEDS: CHOLECALCIFEROL 1,000 UNIT TAB PO SCH (07:51)
[2017-12-22] MEDS: CHERRY FLAVOR 60 ML BOTTLE PO SCH ×3 (07:51→17:39)
[2017-12-22] MEDS: HEPARIN SODIUM,PORCINE 5,000 UNIT/ML 1 ML VIAL SQ SCH ×2 (07:51→20:56)
[2017-12-22] MEDS: FERROUS SULFATE 325 MG TAB PO SCH ×3 (07:51→21:02)
[2017-12-22] MEDS: VANCOMYCIN ORAL SOLUTION 250 MG/5 ML BOTTLE PO SCH ×3 (07:52→17:39)
[2017-12-22 08:07] LABS: Calcium 7.6 mg/dL (8.4-10.2); Potassium 3.4 mmol/L (3.5-5.1)
--- NOTE | 2017-12-22 09:30 | XR ---
EXAMINATION TYPE: XR chest 1V DATE OF EXAM: 12/22/2017 COMPARISON: Prior chest x-ray 12/21/2017 HISTORY: Shortness of breath TECHNIQUE: Single frontal view of the chest is obtained. FINDINGS: There is no pneumothorax. Bibasilar density persists. The heart is enlarged. Patient is ro tated. IMPRESSION: Similar to prior exam, bibasilar effusions and associated atelectasis, correlate to excl ude pneumonia versus edema. Cardiomegaly.
--- NOTE | 2017-12-22 09:39 | P.PN ---
Subjective Patient is examined by me malignant sides still dyspnic dc iv fluids Objective - Vital Signs Vital signs: Vital Signs Temp 97.8 F 12/22/17 07:00 Pulse 84 12/22/17 07:24 Resp 18 12/22/17 08:18 BP 93/47 12/22/17 07:00 Pulse Ox 92 L 12/22/17 07:00 Intake & Output 12/21/17 12/22/17 12/22/17 18:59 06:59 18:59 Intake Total 100 Output Total 500 Balance -400 Intake: Oral 100 Output: Urine 500 Straight 500 Other: Voiding Method Bedside Commode Incontinent Incontinent Diaper # Voids 1 2 # Bowel Movements 1 2 - Exam Constitutional: No acute distress, conversant, pleasant Eyes: Anicteric sclerae, moist conjunctiva, no lid-lag PERRLA ENMT: NC/AT Oropharynx clear, no erythema, exudates Neck: Supple, FROM, no masses, or JVD No carotid bruits No thyromegaly Lungs: Clear to auscultation Clear to percussion Normal respiratory effort, no accessory muscle use Cardiovascular: Heart regular in rate and rhythm, No murmurs, gallops, or rubs No peripheral edema Abdominal: Soft Nontender, no guarding, rebound or rigidity Abdomen moving with respiration Normoactive bowel sounds No hepatomegaly, No splenomegaly No palpable mass No abdominal wall hernia noted Skin: Normal temperature, tone, texture, turgor No induration No subcutaneous nodules No rash, lesions No ulcers Extremities: No digital cyanosis No clubbing Pedal pulses intact and symmetrical Radial pulses intact and symmetrical Normal gait and station No calf tenderness Psychiatric: Alert and oriented to person, place and time Appropriate affect Intact judgement Neuro: Muscles Strength 5/5 in all 4 extremities Sensation to light touch grossly present throughout Cranial nerves II-XII grossly intact No focal sensory deficits - Labs CBC & Chem 7: 12/22/17 06:49 12/22/17 06:49 Labs: Abnormal Lab Results - Last 24 Hours (Table) 12/22/17 12/22/17 Range/Units 06:49 06:49 Hgb 11.0 L (11.4-16.0) gm/dL RDW 16.9 H (11.5-15.5) % Potassium 3.4 L (3.5-5.1) mmol/L Calcium 7.6 L (8.4-10.2) mg/dL Microbiology - Last 24 Hours (Table) 12/19/17 02:46 Blood Culture - Preliminary Blood No Growth after 72 hours Assessment and Plan Assessment: -Possible pneumonia, community-acquired,CXR there is some infiltrated abdomen lung bases that is slightly increased compared to old exam, no positive blood culture and 48 hours and sputum culture not done , s/p ceftriaxone and zithromax , ID consult is appreciated DC antibiotic, check EKG: pending -Urine cultures positive for E. coli which is sensitive to ceftriaxone, D consult is appreciated DC antibiotic, -C. diff colitis, no abdominal pain, start Flagyl, check abdominal x-ray, pt has fever on 12/21, repeat BC, call ID consult -Hypotension, resolved lactic acid 0.8 wnl -Possible acute kidney injury creatinine is 1.4 went down to 0.7 [WNL] -History of leg edema, was on Lasix and held in view of low blood pressure, check echocardiogram EF 55-60% -History of schizophrenia, not active tissue, patient sitting in bed , she denies hallucination or delusions, continue same treatment and follow-up as an outpatient -Generalized weakness mostly related to her infection and hypotension, check PT/ OT pending
[2017-12-22] MEDS ORDERED: POTASSIUM CHLORIDE 20 MEQ in WATER FOR INJECTION 1 100ML.BAG IVPB STA (13:57)
[2017-12-22] MEDS: ACETAMINOPHEN TAB 325 MG TAB PO PRN (19:01)
[2017-12-22] MEDS: risperiDONE ODT 1 MG TAB PO SCH (20:53)
[2017-12-22] MEDS: DONEPEZIL 10 MG TAB PO SCH ×2 (20:56→21:02)
[2017-12-22] MEDS: ESCITALOPRAM 10 MG TAB PO SCH ×2 (20:56→21:02)
--- NOTE | 2017-12-22 23:07 | PN ---
PROGRESS NOTE DATE OF SERVICE: 12/22/2017. REASON FOR FOLLOWUP VISIT: 1. C difficile colitis. 2. UTI adequately treated. INTERVAL HISTORY: The patient is afebrile. She is breathing comfortably. She remains to be slightly lethargic. Unable to provide any history. No nausea, vomiting or any worsening diarrhea per the nursing staff. PHYSICAL EXAMINATION: Blood pressure 94/50 with a pulse of 80, temperature 99.1. General description is an elderly female lying in bed in no distress. Respiratory system: Unlabored breathing. Clear to auscultation anteriorly. Heart S1, S2. Regular rate and rhythm. Abdomen soft, no tenderness. LABS: Hemoglobin is 11, white count 8.1 with BUN of 13, creatinine 0.7. DIAGNOSTIC IMPRESSION AND PLAN: 1. Patient with E coli urinary tract infection adequately treated. 2. Patient with C difficile colitis. The patient to continue on the vancomycin 250 p.o. every 6 hours to finish 10 day course of therapy. Continue supportive care. MMODL / IJN: [id number] /
[2017-12-23] MEDS: VANCOMYCIN ORAL SOLUTION 250 MG/5 ML BOTTLE PO SCH ×4 (01:18→18:02)
[2017-12-23] MEDS: CHERRY FLAVOR 60 ML BOTTLE PO SCH ×4 (01:18→18:02)
[2017-12-23] MEDS: IPRATROPIUM-ALBUTEROL 3 ML NEB INHALATION SCH ×4 (07:29→19:20)
[2017-12-23] MEDS: HEPARIN SODIUM,PORCINE 5,000 UNIT/ML 1 ML VIAL SQ SCH (09:13)
[2017-12-23] MEDS: CHOLECALCIFEROL 1,000 UNIT TAB PO SCH (09:13)
[2017-12-23] MEDS: FERROUS SULFATE 325 MG TAB PO SCH (09:13)
[2017-12-23] MEDS ORDERED: FERROUS SULFATE 325 MG TAB PO ONE (21:00)
[2017-12-23] MEDS ORDERED: DONEPEZIL 10 MG TAB ONE (21:00)
[2017-12-23] MEDS ORDERED: ESCITALOPRAM 10 MG TAB ONE (21:00)
[2017-12-23] MEDS ORDERED: HEPARIN SODIUM,PORCINE 5,000 UNIT/ML 1 ML VIAL ONE (21:00)
--- NOTE | 2017-12-23 21:53 | PN ---
PROGRESS NOTE DATE OF SERVICE: 12/23/2017 This 82-year-old woman who was admitted with possible pneumonia continued to be doing worse. p.o. intake appears to be extremely poor. Patient is confused. Multiple consultants are following the patient closely. Patient on broad-spectrum IV antibiotics. The patient also had UTI with E coli. Infectious Disease is also following the patient closely. PAST MEDICAL HISTORY: Reviewed. REVIEW OF SYMPTOMS: Could not be taken, the patient is confused. CURRENT MEDICATIONS: Reviewed and include: 1. Tylenol 650 q.6h p.r.n. 2. DuoNeb q.i.d. and p.r.n. 3. Villa syrup. 4. Vitamin D 3000 daily. 5. Aricept 10 mg q.h.s. 6. Lexapro 10 mg q.h.s. 7. Iron sulfate 320 mg b.i.d. 9. Risperdal 1 mg q.h.s. 10.Vancomycin 250 mg q.6h p.r.n. PHYSICAL EXAM: Patient is alert oriented x1. Pulse 76, blood pressure 102/50, respiration 18, temperature 97 degrees, pulse ox 97% on 3 L. HEENT: Conjunctivae normal. Oral mucosa moist. Neck is no jugular venous distention. No carotid bruit. No lymph node enlargement. Cardiovascular system: S1, S2 muffled. No S3, no S4. Respiratory: Breath sounds diminished in the bases. A few scattered rhonchi and crackles. Expiratory wheezing and crackles. ABDOMEN: Soft, nontender. No mass palpable. Legs: No edema and no swelling. Central nervous system: Diffusely weak. LAB: Investigations at this time shows WBC 8.1, hemoglobin 11, sodium 139, potassium 3.4. ASSESSMENT: 1. Acute pneumonia possibly community-acquired. 2. Urinary tract infection with E coli. 3. C difficile colitis. 4. Hypotension possibly secondary to hypovolemia. 5. Acute kidney injury with acute renal failure. 6. History of leg edema. 7. History of schizophrenia. 8. Generalized weakness. 9. Anemia. 10.Hypokalemia. 11.NO CODE. RECOMMENDATIONS AND DISCUSSION: In this 82-year-old woman who presented with multiple complex medical issues, at this time I recommend to continue current medications. The prognosis is extremely guarded. The patient's p.o. intake is extremely poor. We had discussed with the legal guardian and the patient is NO CODE at this time. The hospice also an option. We will continue to monitor. Otherwise prognosis is extremely guarded. See orders for details. Further recommendations to follow. MMODL / IJN: [id number] / MTDD
--- NOTE | 2017-12-23 22:50 | PN ---
PROGRESS NOTE DATE OF SERVICE: 12/23/2017. REASON FOR FOLLOWUP: C difficile colitis. INTERVAL HISTORY: The patient is afebrile. The patient remained to be weak, lethargic and has been refusing most of her medication and meals. She did have 1 loose stool this morning per the RN. No nausea, vomiting and she was unable to provide any reliable history. EXAMINATION: Blood pressure 144/55 with a pulse of 73, temperature 98.4. She is 92% on 2 L nasal cannula. General description is an elderly female lying in bed in no distress. Respiratory system: Unlabored breathing. Clear to auscultation anteriorly. Heart S1, S2. Regular rate and rhythm. Abdomen soft, no tenderness. LABS: Hemoglobin is 11 with a white count of 8.1. BUN of 13, creatinine 0.87. DIAGNOSTIC IMPRESSION AND PLAN: 1. Patient with E coli urinary tract infection adequately treated. 2. Patient with C difficile colitis, currently on oral vancomycin. The patient's oral intact remains extremely poor. We will IV Flagyl and see the response. However, the patient may benefit from hospice evaluation. 3. Continue supportive care. MMODL / IJN: [id number] /
[2017-12-24] MEDS: VANCOMYCIN ORAL SOLUTION 250 MG/5 ML BOTTLE PO SCH ×3 (05:32→12:20)
[2017-12-24] MEDS: CHERRY FLAVOR 60 ML BOTTLE PO SCH ×3 (05:32→12:21)
[2017-12-24 07:25] VITALS: BP 106/60; RESP 20; TEMP 97.9
[2017-12-24] MEDS: IPRATROPIUM-ALBUTEROL 3 ML NEB INHALATION SCH ×2 (07:50→11:55)
[2017-12-24 07:58] LABS: Anisocytosis Slight; Basophils % (A) 0 %; Eosinophils % (A) 0 %; HCT 30.2 % (34.0-46.0); HGB 9.9 gm/dL (11.4-16.0); Lymphocytes # (A) 1.2 k/uL (1.0-4.8); Lymphocytes % (A) 19 %; MCH 27.6 pg (25.0-35.0); MCHC 32.8 g/dL (31.0-37.0); MCV 84.1 fL (80.0-100.0); Mean Platelet Volume 7.9; Monocytes # (A) 0.5 k/uL (0-1.0); Monocytes % (A) 7 %; Neutrophils # (A) 4.7 k/uL (1.3-7.7); Neutrophils % (A) 72 %; Platelet Count 210 k/uL (150-450); RBC 3.59 m/uL (3.80-5.40); RDW 16.7 % (11.5-15.5); WBC 6.5 k/uL (3.8-10.6)
[2017-12-24 08:31] LABS: Anion Gap 8 mmol/L; Blood Urea Nitrogen 13 mg/dL (7-17); Calcium 7.6 mg/dL (8.4-10.2); Carbon Dioxide 28 mmol/L (22-30); Chloride 106 mmol/L (98-107); Glucose 88 mg/dL (74-99); Potassium 3.6 mmol/L (3.5-5.1); Sodium 142 mmol/L (137-145)
--- NOTE | 2017-12-24 09:06 | CDI ---
Last Revision, August 2017 Documentation Clarification Form Date: 12/24/17 09:06 From: Leena Logan Admit Date: 12/19/2017 1:57:00 AM Patient Name: Nicol Luke Visit Number: [id number] ATTENTION: The Clinical Documentation Specialists (CDI) and [facility] Coding Staff appreciate your assistance in clarifying documentation. Please respond to the clarification below the line at the bottom and electronically sign. The CDI & [facility] Coding staff will review the response and follow-up if needed. Please note: Queries are made part of the Legal Health Record. If you have any questions, please contact the author of this message via ITS. Dr. Vikki Raman, A diagnosis of anemia lacks specificity to accurately reflect your patients severity of condition and clarification is needed. 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 admitted with fatigue and weakness, possible pneumonia Clinical indicators: Hemoglobin: on admission 12.3, 12/24 9.9 Hematocrit: on admission 36.8, 12/24 30.2 Treatment: 1 units of PRBCs ordered, iron, monitoring labs In order to capture the severity of condition, please clarify the type of anemia and etiology if known: Acute blood loss anemia Acute on chronic blood loss anemia Chronic blood loss anemia Iron deficiency anemia Unable to determine Other, please specify Please continue to document in your progress notes, under the line below and discharge summary in order to capture severity of illness and risk of mortality. Include clinical findings that support your diagnosis. unable to determine 12/24/17 already answered 12/25/17 already answered 12/31/17 already answered 01/02/18 already answered MTDD
[2017-12-24] MEDS: CHOLECALCIFEROL 1,000 UNIT TAB PO SCH (09:39)
[2017-12-24] MEDS: FERROUS SULFATE 325 MG TAB PO SCH ×2 (09:39→10:28)
[2017-12-24] MEDS: HEPARIN SODIUM,PORCINE 5,000 UNIT/ML 1 ML VIAL SQ SCH ×2 (09:40→10:29)
[2017-12-24] MEDS: DONEPEZIL 10 MG TAB PO SCH (10:27)
[2017-12-24] MEDS: ESCITALOPRAM 10 MG TAB PO SCH (10:28)
[2017-12-24] MEDS: risperiDONE ODT 1 MG TAB PO SCH (10:32)
--- NOTE | 2017-12-24 10:52 | P.DS ---
Providers Date of admission: 12/19/17 01:57 Attending physician: Vikki Raman Consults: 12/21/17 08:55 Consult Physician Routine Consulting Provider: Dalila Garcia Consult Reason/Comments: fever Do you want consulting provider notified?: Yes Primary care physician: Stated None Hospital Course: Final Diagnoses: 1. Acute pneumonia, possibly community-acquired 2. Acute UTI with E. coli 3. Acute C. difficile colitis 4. Hypotension possibly secondary to hypovolemia 5. Acute kidney injury with Acute renal failure 6. Schizophrenia, history of 7. Anemia 8. No code, no CPR, no intubation Hospital course: This is an 82-year-old female admitted with multiple complex medical issues including pneumonia, UTI with E. coli, acute C. difficile colitis , poor oral intake, medical debility. Evaluated by infectious disease. Maintained on antibiotics. Extremely guarded prognosis discussed with legal guardian, patient is no code, no CPR, no intubation. Per legal guardian patient will be discharged to ECF with hospice to be initiated at the [facility]. Patient is being discharged to [facility] with extremely guarded prognosis. Physical exam:GENERAL:VSS, alert and oriented 1, CV: S1, S2 muffled.LUNGS: Bilateral bases diminished with scattered rhonchi, expiratory wheezing and crackles. ABD: Soft, nontender, positive bowel sounds.PUBLIC INFORMATION COORDINATOR: Diffuse weakness. The impression and plan of care has been dictated as directed. : I performed a history and examination of this patient, discussed the same with the dictator. I agree with the dictator's note ,documented as a scribe. Any additional findings or plans will be noted. Time taken: 35 minutes Plan - Discharge Summary New Discharge Prescriptions: New Ipratropium-Albuterol Nebulize [Duoneb 0.5 mg-3 mg/3 ml Soln] 3 ml INHALATION RT-QID ampul.neb Ipratropium-Albuterol Nebulize [Duoneb 0.5 mg-3 mg/3 ml Soln] 3 ml INHALATION RT-TID PRN ampul.neb PRN Reason: Shortness Of Breath Or Wheezing Vancomycin Oral Solution 250 mg PO Q6HR ml Cholecalciferol [Vitamin D3] 1,000 unit PO DAILY tab Donepezil [Aricept] 10 mg PO HS tab Escitalopram [Lexapro] 10 mg PO HS tab Ferrous Sulfate [Iron (65 MG Elemental)] 325 mg PO BID tab Continue risperiDONE ODT [RisperDAL M-TAB] 1 mg PO HS 30 Days tab Acetaminophen [Tylenol 8 Hour] 650 mg PO Q6H PRN PRN Reason: Pain Discontinued Escitalopram [Lexapro] 10 mg PO HS Loperamide [Imodium] 2 - 4 mg PO DIRECTED PRN PRN Reason: Diarrhea Cholecalciferol [Vitamin D3] 1,000 unit PO DAILY Ensure 1 can PO BID-W/MEALS Furosemide [Lasix] 40 mg PO DAILY Discharge Medication List risperiDONE ODT [RisperDAL M-TAB] 1 mg PO HS 30 Days tab 11/21/16 [Rx] Acetaminophen [Tylenol 8 Hour] 650 mg PO Q6H PRN 12/19/17 [History] Cholecalciferol [Vitamin D3] 1,000 unit PO DAILY tab 12/24/17 [Rx] Donepezil [Aricept] 10 mg PO HS tab 12/24/17 [Rx] Escitalopram [Lexapro] 10 mg PO HS tab 12/24/17 [Rx] Ferrous Sulfate [Iron (65 MG Elemental)] 325 mg PO BID tab 12/24/17 [Rx] Ipratropium-Albuterol Nebulize [Duoneb 0.5 mg-3 mg/3 ml Soln] 3 ml INHALATION RT -QID ampul.neb 12/24/17 [Rx] Ipratropium-Albuterol Nebulize [Duoneb 0.5 mg-3 mg/3 ml Soln] 3 ml INHALATION RT -TID PRN ampul.neb 12/24/17 [Rx] Vancomycin Oral Solution 250 mg PO Q6HR ml 12/24/17 [Rx] Follow up Appointment(s)/Referral(s): Ortega Larsen MD [REFERRING] - 3 Days Activity/Diet/Wound Care/Special Instructions: [facility] Hospice being initiated at the [facility]-
--- NOTE | 2017-12-24 11:21 | PN ---
PROGRESS NOTE DATE OF SERVICE: 12/24/2017 REASON FOR FOLLOWUP: C. Difficile colitis. INTERVAL HISTORY: The patient is afebrile. She seemed to be more awake and alert this morning when she was seen. Denies having any chest pain or cough. No nausea, no vomiting. No abdominal pain or any worsening diarrhea reported by the nursing staff. PHYSICAL EXAMINATION: On examination, blood pressure 106/60 with a pulse of 72 temperature is 97.9. She is 92% 2 L nasal cannula. General description is an elderly female lying in bed in no distress. RESPIRATORY SYSTEM: Unlabored breathing with decreased breath sounds in the bases. No wheeze. HEART: S1, S2. Regular rate and rhythm. ABDOMEN: Soft, no tenderness. LABS: Hemoglobin is 9.9, white count 6.5 with a BUN of 13, creatinine 0.71. DIAGNOSTIC IMPRESSION AND PLAN: 1. Patient with Escherichia coli urinary tract infection, adequately treated. 2. Patient with Clostridium difficile colitis. The patient is slowly waking up. Plan at this time is to continue the p.o. vancomycin to finish 10-day course of therapy. Continue with supportive care. MMODL / IJN: [id number] /
[2017-12-24 12:31] VITALS: PULSE 76
--- NOTE | 2017-12-26 11:05 | CDI ---
Last Revision, August 2017 Documentation Clarification Form Date: 12/26/17 From: Kenna Anuj Claudia Aguirre, Senior Patrol Agent between 8:30 am & 5 pm M-F Admit Date: 12/19/2017 1:57:00 AM Patient Name: Nicol Luke Visit Number: [id number] Discharge Date: 12/24/17 ATTENTION: The Clinical Documentation Specialists (CDI) and [facility] Coding Staff appreciate your assistance in clarifying documentation. Please respond to the clarification below the line at the bottom and electronically sign. The CDI & [facility] Coding staff will review the response and follow-up if needed. Please note: Queries are made part of the Legal Health Record. If you have any questions, please contact the author of this message via ITS. Dr. Vikki Raman Patient with history of CHF. Home medications: Lasix 40 mg po daily. No BNP Echo: left ventricular systolic function is normal with an EF between 55-60% 12/21 CXR: cardiomegaly, bilateral effusions 12/22 CXR: bibasilar effusions and associated atelectasis, correlated to exclude pneumonia vs edema. Cardiomegaly Treatment: 12/21 IV Lasix 40 mg x 1 then on 12/22 IV Lasix 40 mg x 1 In your professional opinion, can you please clarify the acuity and type of CHF if known? Type Systolic Heart Failure: Diastolic Heart Failure: Systolic & Diastolic Heart Failure: Acuity Acute Chronic Acute on Chronic Heart Failure Unable to Determine Other, please specify Please continue to document in your progress notes and discharge summary in order to capture severity of illness and risk of mortality. Include clinical findings that support your diagnosis. Unable to Determine 01/02/18 already documented MTDD
--- NOTE | 2017-12-29 10:36 | CDI ---
Last Revision, August 2017 Documentation Clarification Form Date: 12/29/17 From: Kenna Anuj Claudia Aguirre, Shop Repairer between 8:30 am & 5 pm Mary Admit Date: 12/19/2017 1:57:00 AM Patient Name: Nicol Luke Visit Number: [id number] Discharge Date: 12/24/17 ATTENTION: The Clinical Documentation Specialists (CDI) and [facility] Coding Staff appreciate your assistance in clarifying documentation. Please respond to the clarification below the line at the bottom and electronically sign. The CDI & [facility] Coding staff will review the response and follow-up if needed. Please note: Queries are made part of the Legal Health Record. If you have any questions, please contact the author of this message via ITS. Dr. Henry E Sheet Clinical significance of diagnostic testing and treatment CANNOT be assumed or coded without physician documentation of significance if any. Please clarify what abnormal echo signifies: Echocardiogram results: Mild aortic stenosis, moderate mitral regurgitation, mild tricuspid regurgitation, mild pulmonary hypertension Which of the diagnoses, if any do you agree with: Mild aortic stenosis Moderate mitral regurgitation Mild tricuspid regurgitation Mild pulmonary hypertension (include the group [1,2,3,4,5] Other, please specify Please continue to document in your progress notes and discharge summary in order to capture severity of illness and risk of mortality. Include clinical findings that support your diagnosis. not sure about clinical significance MTDD
== END 2017-12-24 15:45 | DRG 194 ==
LOC: EC 23:59 → EEVIPCON 12-19 01:57 → 5MS5E 12-19 01:57
PROVIDERS: ADMIT Hospitalist; ATTEND Hospitalist
DX: J18.9 Pneumonia, unspecified organism (principal); A04.72 Enterocolitis due to Clostridium difficile, not specified as recurrent; E46 Unspecified protein-calorie malnutrition; N17.9 Acute kidney failure, unspecified; I95.9 Hypotension, unspecified; J44.0 Chronic obstructive pulmonary disease with (acute) lower respiratory infection; I50.9 Heart failure, unspecified; F20.5 Residual schizophrenia; N39.0 Urinary tract infection, site not specified; D64.9 Anemia, unspecified; E86.1 Hypovolemia; E86.0 Dehydration; Z66 Do not resuscitate; G30.9 Alzheimer's disease, unspecified; F02.80 Dementia in other diseases classified elsewhere, unspecified severity, without behavioral disturbance, psychotic disturbance, mood disturbance, and anxiety; R62.7 Adult failure to thrive; B96.20 Unspecified Escherichia coli [E. coli] as the cause of diseases classified elsewhere; K44.9 Diaphragmatic hernia without obstruction or gangrene; R09.02 Hypoxemia; R26.2 Difficulty in walking, not elsewhere classified; R60.0 Localized edema; E87.6 Hypokalemia; Z68.22 Body mass index [BMI] 22.0-22.9, adult; Z71.3 Dietary counseling and surveillance; Z79.899 Other long term (current) drug therapy; Z90.49 Acquired absence of other specified parts of digestive tract; Z83.79 Family history of other diseases of the digestive system; Z82.3 Family history of stroke
CPT/HCPCS: 36415; 71045; 71046; 74018; 80048; 80053; 81001; 82272; 82728; 83021; 83540; 83550; 83605; 83735; 84132; 84484; 85025; 85610; 85730; 86850; 86900; 86901; 87040; 87077; 87086; 87186; 87324; 93005; 93306; 94640; 94760; 96374; 99285